=== PATIENT | male | born 1965 | race Caucasian/White ===

== ENCOUNTER 2021-02-12 23:57 | Inpatient (IN) | payer OTHER, SELFPAY ==
[~2021-02-12] VITALS: Ht 172.7 cm; Wt 99.8 kg
[2021-02-13] VITALS: BP 157/53
--- NOTE | 2021-02-13 00:20 | NUR ---
55 yo m bib self with c/c of 9/10 sharp r chest and r upper back pain x 1day. pt is sob sating at 83% on RA, 4L of 02 gets pt to 90%. pt states he was bending fwrd to put his sock on and felt a pull on his back. pt states activity causes sob. pt came in with 02 at 4L, stated he was hospitalized for about 4 months d/t covid. denies n/v/d and fever. denies taking medication for pain. pt placed on monitor. all needs met at this time. hx:prediabetic rx: medication for dm (cant recall name) denies allerg
--- NOTE | 2021-02-13 00:31 | NUR ---
ermd at bedside.
--- NOTE | 2021-02-13 01:10 | NUR ---
lab at bedside.
--- NOTE | 2021-02-13 01:12 | NUR ---
lonnie collected and given to stuart starch factory laborer.
[2021-02-13 01:26] LABS: BASOPHILS % (AUTO) 0.4 % (0.0-2.0); EOSINOPHILS # (AUTO) 0.1 K/uL (0-0.4); EOSINOPHILS % (AUTO) 0.6 % (0.0-4.0); HEMATOCRIT 49.8 % (36-52); HEMOGLOBIN 16.4 g/dL (12.0-18.0); LYMPHOCYTES % (AUTO) 9.3 % (20.5-51.1); MEAN CORPUSCULAR HEMOGLOBIN 29 pg (27-31); MEAN CORPUSCULAR HGB CONC 33 g/dL (33-37); MEAN CORPUSCULAR VOLUME 88.4 fL (80-94); MONOCYTES # (AUTO) 0.5 K/uL (0.8-1.0); MONOCYTES % (AUTO) 4.7 % (1.7-9.3); NEUTROPHILS # (AUTO) 9.4 K/uL (1.8-7.7); PLATELET COUNT (AUTO) 183 K/uL (140-450); RED BLOOD CELL COUNT(AUTO) 5.63 MIL/uL (4.20-6.10); RED CELL DISTRIBUTION WIDTH 15.3 % (11.6-13.7); WHITE BLOOD COUNT (AUTO) 11.1 K/uL (4.8-10.8)
[2021-02-13 01:38] LABS: ALBUMIN 4.2 g/dL (3.4-5.0); ANION GAP 16.8 (8-16); CARBON DIOXIDE 24.7 mmol/L (21-32); CREATININE 0.8 mg/dL (0.6-1.3); POTASSIUM 3.5 mmol/L (3.5-5.1); TOTAL BILIRUBIN 0.9 mg/dL (0.0-1.0)
[2021-02-13] MEDS ORDERED: LIDOCAINE MPF 1% 5 ML ONE ×2 (02:06→02:13)
[2021-02-13] MEDS ORDERED: LIDOCAINE MPF 1% 10 MG/ML VIAL INJ ONE (02:35)
--- NOTE | 2021-02-13 02:45 | NUR ---
Consent signed per patient for placement of chest tube to right upper chest chest. Physician marked site for placement. Time out performed with all staff involved just prior to placement. right side chest cleansed with chlorahexadine per physician. Physician numbed site with lidocain prior to placement. # 32 FR chest tube placed to right side chest per ermd. Tubing sutured in place per ermd . Tubing taped to chest wall with foam tape per ermd. Pleuravac connected to chest tube per ermd. no drainage noted to tubing. Pleuravac secured to floor with tape. Lung sounds auscultated over right side chest wall. O2 sats 94% per pulse ox. Patient tolerated procedure well. PCXR done at bedside.
--- NOTE | 2021-02-13 03:18 | NUR ---
pt provided with food.
[2021-02-13] MEDS ORDERED: MORPHINE SULFATE 4 MG/ML SYR IVP ONE (03:20)
--- NOTE | 2021-02-13 03:48 | NUR ---
pt is sitting up in bed, in stable condition. vss.pt smiling, stated he felt relief as soon as the chest tube was placed. pt said he is grateful. all needs met at this time. bed locked in lowest position. side rails x2. pt asked to keep food at bedside for later.
--- NOTE | 2021-02-13 07:38 | NUR ---
Pt report given to KIT RANKIN. Transfer of care at this time.
[2021-02-13] MEDS ORDERED: MAG SULF 2000 MG/WATER PREMIX 50 ML IV PRN (07:40)
[2021-02-13] MEDS ORDERED: ACETAMINOPHEN 325 MG TAB PO PRN (07:40)
[2021-02-13] MEDS ORDERED: KCL 20 MEQ/WATER INJ PREMIX 200 ML IV PRN (07:40)
[2021-02-13] MEDS ORDERED: MAGNESIUM OXIDE 400 MG TAB PO PRN (07:40)
[2021-02-13] MEDS ORDERED: ONDANSETRON 4 MG/2 ML VIAL IVP PRN (07:40)
[2021-02-13] MEDS ORDERED: POTASSIUM CHLORIDE 10 MEQ TABER PO PRN (07:40)
[2021-02-13] MEDS ORDERED: MORPHINE SULFATE 4 MG/ML SYR IVP PRN (07:40)
--- NOTE | 2021-02-13 09:24 | NUR ---
Patient will be admitted to care of B[facility]JAM[facility]NS. Admited to TELEMETRY. Will go to room 106B. Belongings list completed. Report to REJI PANTOJA.
[2021-02-13] MEDS: DOCUSATE SODIUM 100 MG GELCAP PO SCH (09:33)
--- NOTE | 2021-02-13 09:58 | NUR ---
RECEIVED PT FROM ED. PT STABLE. CHEST TUBE IN PLACE WITH SUCTION SET TO 10 PER MD ORDERS. O2 AT 4L NC. PERSONAL BELONGINGS AT BEDSIDE ALONG WITH PERSONAL O2 TANK. ORIENTED PT TO ROOM AND CALL LIGHT. CALL LIGHT IN REACH. URINAL AT BEDSIDE. ALL SAFETY MEASURES IN PLACE.
--- NOTE | 2021-02-13 10:36 | NUR ---
PROVIDED PT GOWN. NO S/S OF DISTRESS. PT DENIES PAIN AT THIS TIME. BREATHING SYMMETRICAL. CALL LIGHT IN REACH. ALL SAFETY MEASURES IN PLACE.
[2021-02-13 12:00] VITALS: BP 116/76
--- NOTE | 2021-02-13 12:42 | NUR ---
PT RESTING IN BED. NO S/S OF DISTRESS. BREATHING SYMMETRICAL. LUNCH AT BEDSIDE. CALL LIGHT IN REACH. ALL SAFETY MEASURES IN PLACE.
--- NOTE | 2021-02-13 14:36 | NUR ---
PATIENT STATED TAKING MEDICATIONS AT HOME. PT NOT SURE WHAT MEDICATIONS ARE CALLED. ATTEMPTED TO REACH FAMILY TO CLARIFY. NO ANSWER AT THIS TIME. CALL LIGHT WITHIN REACH. ALL SAFETY MEASURES IN PLACE.
--- NOTE | 2021-02-13 15:55 | NUR ---
PT RESTING IN BED WITH EYES CLOSED. NO S/S OF DISTRESS. BREATHING SYMMETRICAL. SUCTIONING PER MD ORDER. CALL LIGHT IN REACH. ALL SAFETY MEASURES IN PLACE.
[2021-02-13 16:00] VITALS: BP 119/73
[2021-02-13] MEDS ORDERED: METF-1197 PO (17:32)
[2021-02-13] MEDS ORDERED: ATOR40TA PO (17:32)
--- NOTE | 2021-02-13 17:33 | NUR ---
PT FAMILY DROPPED OFF HOME MEDICATIONS. MEDICATION RECONCILIATION COMPLETED MD NOTIFIED.
--- NOTE | 2021-02-13 17:35 | NUR ---
PHARMACY CLOSED. MEDICATIONS SEALED IN BAG AND GIVEN TO PT AT BEDSIDE. PT INSTRUCTED TO LEAVE BAG SEALED AND NOT TAKE HOME MEDS WHILE IN HOSPITAL CARE. PATIENT VERBALIZED UNDERSTANDING. CALL LIGHT IN REACH. ALL SAFETY MEASURES IN PLACE.
--- NOTE | 2021-02-13 19:37 | NUR ---
ENDORSED PT TO TICKET CHOPPER ASSEMBLER NURSE. PT STABLE. NO S/S OF DISTRESS. BREATHING SYMMETRICAL. CALL LIGHT IN REACH. ALL SAFETY MEASURES IN PLACE.
--- NOTE | 2021-02-13 19:38 | NUR ---
RECD. RESTING IN BED, AWAKE, A/OX4. RESPIRATION EVEN AND UNLABORED. ON 02 AT 4 LITERS VIA N/C, 02 SAT - 95%. RESPIRATION EVEN AND UNLABORED. LUNG SOUNDS DIMINISHED ON BILATERAL LUNG AUSCULTATION. WITH CHEST TUBE TO THE RIGHT CHEST TUBE DRAINING MINIMAL AMOUNT OF PINKISH FLUIDS. ENCOURAGED PATIENT TO ALTERNATELY TURN TO RIGHT OR LEFT SIDE TO PREVENT PNEUMONIA. VERBALIZED UNDERSTANDING. ABLE TO EAT 95 % OF DINNER. PAIN IN THE CHEST /, WILL MEDICATE PER MD ORDER.
[2021-02-13] MEDS: HYDROcodone/APAP 5/325 MG 1 TAB TAB PO PRN (19:54)
--- NOTE | 2021-02-13 19:54 | NUR ---
COMPLAINT OF 10/14, PAIN IN THE CHEST TUBE SITE, MEDICATED PER MD ORDER.
[2021-02-13 20:00] VITALS: BP 127/80
--- NOTE | 2021-02-13 20:24 | NUR ---
Patient's Plan of Care was discussed and reviewed with PROGRAM AND RESEARCH COORDINATOR: LEEANN MARTINEZ
--- NOTE | 2021-02-13 20:55 | NUR ---
RESTING IN BED, PAIN IN THE CHEST TUBE SITE, 1/10. STATED FEELS BETTER.
[2021-02-14] VITALS: BP 96/52
--- NOTE | 2021-02-14 | NUR ---
CHECKED PATIENT, SLEEPING COMFORTABLY, RESPIRATION EVEN AND UNLABORED.
--- NOTE | 2021-02-14 02:00 | NUR ---
USES THE URINAL, VOIDING CLEAR YELLOW URINE MODERATE AMOUNT.
[2021-02-14 04:00] VITALS: BP 114/75
--- NOTE | 2021-02-14 04:00 | NUR ---
ASLEEP SUPINE IN BED, NO SOB NOTED.
[2021-02-14] MEDS: HYDROcodone/APAP 5/325 MG 1 TAB TAB PO PRN ×3 (05:45→20:56)
--- NOTE | 2021-02-14 06:00 | NUR ---
CHEST X-RAY DONE BY TECH. 25 ML PINKISH FLUID OUTPUT FOR THE CHEST TUBE DRAINAGE NOTED.
[2021-02-14 07:04] LABS: PROTHROMBIN TIME 10.7 secs (10.8-13.4)
[2021-02-14 07:05] LABS: BASOPHILS % (AUTO) 0.3 % (0.0-2.0); EOSINOPHILS # (AUTO) 0.8 K/uL (0-0.4); EOSINOPHILS % (AUTO) 8.5 % (0.0-4.0); HEMATOCRIT 48.1 % (36-52); HEMOGLOBIN 15.9 g/dL (12.0-18.0); LYMPHOCYTES # (AUTO) 2.4 K/uL (2.0-11.5); LYMPHOCYTES % (AUTO) 25.4 % (20.5-51.1); MEAN CORPUSCULAR HEMOGLOBIN 30 pg (27-31); MEAN CORPUSCULAR HGB CONC 33 g/dL (33-37); MEAN CORPUSCULAR VOLUME 89.9 fL (80-94); MONOCYTES # (AUTO) 0.7 K/uL (0.8-1.0); NEUTROPHILS # (AUTO) 5.5 K/uL (1.8-7.7); NEUTROPHILS % (AUTO) 58.8 % (42.2-75.2); PLATELET COUNT (AUTO) 172 K/uL (140-450); RED BLOOD CELL COUNT(AUTO) 5.35 MIL/uL (4.20-6.10); RED CELL DISTRIBUTION WIDTH 15.5 % (11.6-13.7); WHITE BLOOD COUNT (AUTO) 9.4 K/uL (4.8-10.8)
--- NOTE | 2021-02-14 07:10 | NUR ---
RECEIVED REPORT FROM BEE RANCHER NURSE FOR CONTINUITY OF PATIENT CARE. PATIENT AWAKE AND ALERT. NO ACUTE DISTRESS NOTED. PATIENT ON 4L NC. PATIENT HAS CHEST TUBE TO RIGHT UPPER CHEST. PATIENT HAS L AC 20G. ALL SAFETY MEASURES IN PLACE. CALL LIGHT WITHIN REACH. WILL CONTINUE TO MONITOR.
[2021-02-14 07:28] LABS: ALBUMIN 3.6 g/dL (3.4-5.0); ANION GAP 13.2 (8-16); CARBON DIOXIDE 28.4 mmol/L (21-32); CREATININE 0.8 mg/dL (0.6-1.3); POTASSIUM 3.6 mmol/L (3.5-5.1); TOTAL BILIRUBIN 0.8 mg/dL (0.0-1.0)
--- NOTE | 2021-02-14 07:38 | NUR ---
PATIENT HAS BEEN SCREENED AND CATEGORIZED MODERATE NUTRITION RISK. PATIENT WILL BE SEEN WITHIN 3-5 DAYS OF ADMISSION. 02/15/21 02/17/[address]
[2021-02-14 08:00] VITALS: BP 105/68
[2021-02-14] MEDS: DOCUSATE SODIUM 100 MG GELCAP PO SCH (08:18)
--- NOTE | 2021-02-14 08:20 | NUR ---
PATIENT AWAKE AND ALERT. NO ACUTE DISTRESS NOTED. SCHEDULED MEDICATIONS GIVEN. ALL SAFETY MEASURES IN PLACE. CALL LIGHT WITHIN REACH. PATIENT ON 4L NC. PATIENT O2 95%. WILL CONTINUE TO MONITOR.
--- NOTE | 2021-02-14 10:00 | NUR ---
PATIENT AWAKE AND ALERT. NO ACUTE DISTRESS NOTED. ALL SAFETY MEASURES IN PLACE. CALL LIGHT WITHIN REACH. PATIENT ON 4L NC. PATIENT O2 94%. CHEST TUBE IN PLACE AND WORKING PROPERLY.WILL CONTINUE TO MONITOR
--- NOTE | 2021-02-14 11:46 | NUR ---
PATIENT AWAKE AND ALERT. NO ACUTE DISTRESS NOTED. PATIENT REQUESTED PAIN MEDICATION FOR PAIN AT CHEST TUBE INSERTION SIGHT. NORCO 5 GIVEN. ALL SAFETY MEASURES IN PLACE. CALL LIGHT WITHIN REACH. PATIENT ON 4L NC. PATIENT O2 95%. WILL CONTINUE TO MONITOR.
[2021-02-14 12:00] VITALS: BP 128/77
--- NOTE | 2021-02-14 13:22 | NUR ---
PATIENT AWAKE AND ALERT. NO ACUTE DISTRESS NOTED. PATIENT DENIES PAIN AT THIS TIME. ALL SAFETY MEASURES IN PLACE. CALL LIGHT WITHIN REACH. PATIENT ON 4L NC. PATIENT O2 96%. WILL CONTINUE TO MONITOR.
--- NOTE | 2021-02-14 15:04 | NUR ---
PATIENT AWAKE AND ALERT. NO ACUTE DISTRESS NOTED. PATIENT DENIES PAIN AT THIS TIME. ALL SAFETY MEASURES IN PLACE. CALL LIGHT WITHIN REACH. PATIENT ON 4L NC. PATIENT O2 95%. WILL CONTINUE TO MONITOR.
--- NOTE | 2021-02-14 16:55 | NUR ---
DC PLANNING PATIENT IS A 55-YEAR-OLD MALE ADMITTED ON THE [facility] ED ON 02/13/21 TO SHORTNESS OF BREATH AND CHEST PAIN. PATIENT IS TAJIK SPEAKING ONLY DOOR CLAMP OPERATOR MET WITH PATIENT AT BEDSIDE TO DISCUSS AND GATHER HIS COLLATERAL INFORMATION. PATIENT WAS AWAKE AND ALERT DURING THE VISIT FROM SW. PER PATIENT HE LIVES AT HOME IN [facility] WITH HIS ADULT DAUGHTER DEMETRI [phone]. PATIENT REPORTED BEEN ABLE TO AMBULATE INDEPENDENTLY WITHOUT ANY ASSISTANCE. HOWEVER; SHE HAS STRUGGLES WITH HIS SHORTNESS OF BREATH THEREFORE; HE HAS O2 AND A WHEELCHAIR AT HOME HIS DME. PATIENT REPORTED NOT HAVING ADVANCE DIRECTIVES AND WAS NOT INTERESTED ON GETTING INFORMATION PACKET PROVIDED BY CLAIR. PATIENT REPORTED HAVING NO ISSUES GETTING OR TAKING HIS MEDICATIONS PRESCRIBED BY BOLA GRANDE AT [address] [facility]. [id number]. . PER PATIENT HIS NEXT APPOINTMENT WITH HIS PRIMARY DOCTOR IS ALREADY SCHEDULED FOR 02/17/2021 AT 10:30 AM. DOOR CLAMP OPERATOR DISCUSSED WITH PATIENT ABOUT THE IMPORTANCE OF FOLLOWING UP WITH PCP WITHIN 7 DAYS OF HIS DISCHARGE PATIENT AGREED AND STATED THAT HE WILL BE ATTENDING TO FOLLOW UP APPOINTMENT WITH HIS PRIMARY MD IN [place]. PATIENT ALSO STATED THAT HIS DAUGHTER WILL BE ASSISTING WITH HIS TRANSPORT BACK HOME AFTER DC FROM [facility]. SW WILL FOLLOW UP NEEDED.
--- NOTE | 2021-02-14 17:02 | NUR ---
PATIENT AWAKE AND ALERT. NO ACUTE DISTRESS NOTED. PATIENT DENIES PAIN AT THIS TIME. ALL SAFETY MEASURES IN PLACE. CALL LIGHT WITHIN REACH. PATIENT ON 4L NC. PATIENT O2 97%. CHEAT TUBE INTACT AND SUCTIONING PROPERLY. WILL CONTINUE TO MONITOR.
--- NOTE | 2021-02-14 18:30 | NUR ---
CHEST TUBE DRAINAGE 15ML OUTPUT
--- NOTE | 2021-02-14 19:15 | NUR ---
ENDORSE TO BLEACH TESTER NURSE FOR CONTINUITY OF PATIENT CARE. PATIENT STABLE. ALL SAFETY MEASURES IN PLACE.
[2021-02-15] VITALS: BP 118/74
[2021-02-15 06:02] LABS: ALBUMIN 3.3 g/dL (3.4-5.0); ANION GAP 10.2 (8-16); CARBON DIOXIDE 29.8 mmol/L (21-32); CREATININE 0.8 mg/dL (0.6-1.3); PHOSPHORUS 3.3 mg/dL (2.5-4.9); TOTAL BILIRUBIN 0.7 mg/dL (0.0-1.0)
[2021-02-15 06:06] LABS: PROTHROMBIN TIME 10.6 secs (10.8-13.4)
[2021-02-15 06:12] LABS: BASOPHILS # (AUTO) 0.1 K/uL (0.00-0.22); BASOPHILS % (AUTO) 0.7 % (0.0-2.0); EOSINOPHILS # (AUTO) 1.4 K/uL (0-0.4); EOSINOPHILS % (AUTO) 13.9 % (0.0-4.0); HEMATOCRIT 47.3 % (36-52); HEMOGLOBIN 15.6 g/dL (12.0-18.0); LYMPHOCYTES # (AUTO) 2.6 K/uL (2.0-11.5); MEAN CORPUSCULAR HEMOGLOBIN 29 pg (27-31); MEAN CORPUSCULAR HGB CONC 33 g/dL (33-37); MONOCYTES # (AUTO) 0.7 K/uL (0.8-1.0); MONOCYTES % (AUTO) 6.9 % (1.7-9.3); NEUTROPHILS # (AUTO) 5.2 K/uL (1.8-7.7); NEUTROPHILS % (AUTO) 52.5 % (42.2-75.2); PLATELET COUNT (AUTO) 166 K/uL (140-450); RED BLOOD CELL COUNT(AUTO) 5.31 MIL/uL (4.20-6.10); RED CELL DISTRIBUTION WIDTH 15.4 % (11.6-13.7); WHITE BLOOD COUNT (AUTO) 9.8 K/uL (4.8-10.8)
[2021-02-15 08:00] VITALS: BP 108/69
[2021-02-15] MEDS: DOCUSATE SODIUM 100 MG GELCAP PO SCH ×2 (09:18→09:19)
--- NOTE | 2021-02-15 13:12 | NUR ---
DC PLANNIN YRS OLD MALE PATIENT WAS ADMITTED FROM HOME WITH A DX OF PNEUMOTHORAX. PATIENT HAS A HX OF DM, HLD. CXR SHOWED RT SIDED PNEUMOTHORAX. RAPID COVID TEST NEGATIVE. CONSULTED WITH MORGAN. DC PLAN TO GO HOME WHEN STABLE CM TO FOLLOW Addendum: 02/17/21 at 1433 by Mayi Ortiz RN DC PLANNING: CXR SHOWED NO CHANGE IN SMALL PNEUMOTHORAX 15-20%. CONTINUE WATER SEAL SUCTION. O2 4L/NC SATING 97%. PULMO FOLLOWING . DC PLAN TO GO HOME WHEN STABLE. CM TO FOLLOW Addendum: 02/24/21 at 1410 by Mayi Ortiz RN DC PLANNING: PT STILL HAS CHEST TUBE ON WATER SEAL SUCTION. TODAY"S CXR SHOWED NO PNEUMOTHORAX, ORDERED CT CHEST DC PLAN AWAITING FOR CT CHEST RESULT. CM TO FOLLOW
[2021-02-15 18:02] VITALS: BP 123/77
[2021-02-16] VITALS: BP 115/79
[2021-02-16 07:11] LABS: BASOPHILS # (AUTO) 0.1 K/uL (0.00-0.22); BASOPHILS % (AUTO) 0.6 % (0.0-2.0); EOSINOPHILS # (AUTO) 1.4 K/uL (0-0.4); EOSINOPHILS % (AUTO) 15.6 % (0.0-4.0); HEMATOCRIT 46.8 % (36-52); HEMOGLOBIN 15.6 g/dL (12.0-18.0); LYMPHOCYTES # (AUTO) 1.9 K/uL (2.0-11.5); LYMPHOCYTES % (AUTO) 21.3 % (20.5-51.1); MEAN CORPUSCULAR HEMOGLOBIN 30 pg (27-31); MEAN CORPUSCULAR HGB CONC 33 g/dL (33-37); MEAN CORPUSCULAR VOLUME 89.2 fL (80-94); MONOCYTES # (AUTO) 0.7 K/uL (0.8-1.0); MONOCYTES % (AUTO) 7.2 % (1.7-9.3); NEUTROPHILS # (AUTO) 5.1 K/uL (1.8-7.7); NEUTROPHILS % (AUTO) 55.3 % (42.2-75.2); PLATELET COUNT (AUTO) 177 K/uL (140-450); RED BLOOD CELL COUNT(AUTO) 5.24 MIL/uL (4.20-6.10); WHITE BLOOD COUNT (AUTO) 9.2 K/uL (4.8-10.8)
--- NOTE | 2021-02-16 07:25 | NUR ---
RECEIVED REPORT FROM ASSEMBLER FINAL NURSE FOR CONTINUITY OF CARE. PATIENT IS AWAKE AND ALERT. PATIENT IS ON 4L O2 VIA NASAL CANULA. NO DISTRESS NOTED. NO PAIN REPORTED. PATIENT ABD IS NON-DISTENDED, NON-TENDER WITH BOWEL SOUNDS PRESENT. PATIENT HAS CHEST TUBE TO RIGHT UPPER CHEST. CHEST TUBE IS CLAMPED PER ORDER. NO IV ACCESS. PATIENT HAS FULL ROM TO UPPER AND LOWER EXTREMITIES. CALL LIGHT WITHIN REACH. ALL SAFETY MEASURES IN PLACE. BED IN LOWEST POSITION.
[2021-02-16 07:38] LABS: ALBUMIN 3.3 g/dL (3.4-5.0); CARBON DIOXIDE 29.9 mmol/L (21-32); CREATININE 0.7 mg/dL (0.6-1.3); PHOSPHORUS 3.3 mg/dL (2.5-4.9); POTASSIUM 3.9 mmol/L (3.5-5.1); TOTAL BILIRUBIN 0.8 mg/dL (0.0-1.0)
[2021-02-16 08:00] VITALS: BP 125/89
[2021-02-16 08:23] LABS: PROTHROMBIN TIME 10.5 secs (10.8-13.4)
[2021-02-16] MEDS: DOCUSATE SODIUM 100 MG GELCAP PO SCH (09:00)
--- NOTE | 2021-02-16 09:00 | NUR ---
ALL SCHEDULED MEDICATION ADMINISTERED. PATIENT TOLERATED WELL. NO PAIN OR CONCERNS REPORTED. WILL CONTINUE TO MONITOR.
--- NOTE | 2021-02-16 11:43 | NUR ---
02/16/21 RD INITIAL ASSESSMENT COMPLETED PLEASE REFER TO NUTRITION ASSESSMENT UNDER CARE ACTIVITY FOR ESTIMATED NUTRITIONAL NEEDS. 1. CONTINUE CARDIAC DIET TOLERATED 2. RECOMMEND ENSURE IF PO INTAKE <75% 3. RD TO FOLLOW-UP 3-5 DAYS, MODERATE RISK STEVIE BRAXTON, RD
[2021-02-16] MEDS: HYDROcodone/APAP 5/325 MG 1 TAB TAB PO PRN (11:57)
--- NOTE | 2021-02-16 11:57 | NUR ---
PATIENT COMPLAIN OF PAIN. RATE 5 OUT OF 10. MEDICATION ADMINISTERED.WILL CONTINUE TO MONITOR.
--- NOTE | 2021-02-16 12:10 | NUR ---
CHEST TUBE SUCTION CHANGED BACK TO LCS @ 15 PER ORDER.
--- NOTE | 2021-02-16 14:05 | NUR ---
DID ROUNDS ON PATIENT. PATIENT IS UP IN CHAIR WATCHING TELEVISION. NO COMPLAINTS OF PAIN OR DISCOMFORT. ASKED PATIENT IF HE NEEDED ANYTHING, PATIENT STATED ALL HE WANTED WAS ICE WATER. BROUGHT PATIENT WATER. CALL LIGHT WITHIN REACH. WILL CONTINUE TO MONITOR.
[2021-02-16 16:00] VITALS: BP 106/69
--- NOTE | 2021-02-16 16:00 | NUR ---
ROUNDED ON PATIENT. PATIENT IS AWAKE AND ON THE PHONE AT THIS TIME. NO COMPLAINTS OF PAIN OR DISCOMFORT. CHECKED CHEST TUBE DRAINAGE. DRAINED 9 ML SINCE TUBE WAS UNCLAMPED AND SUCTION RESUMED. WILL CONTINUE TO MONITOR.
--- NOTE | 2021-02-16 19:15 | NUR ---
ENDORSED PATIENT TO PARK MAINTAINER NURSE. PATIENT STABLE. NO SIGHS OF DISTRESS NOTED. CALL LIGHT WITHIN REACH. BED IN LOWEST POSITION. ALL SAFETY MEASURES IN PLACE.
[2021-02-17] VITALS: BP 115/72
[2021-02-17 07:10] LABS: BASOPHILS # (AUTO) 0.1 K/uL (0.00-0.22); BASOPHILS % (AUTO) 0.6 % (0.0-2.0); EOSINOPHILS # (AUTO) 1.4 K/uL (0-0.4); EOSINOPHILS % (AUTO) 13.7 % (0.0-4.0); HEMATOCRIT 46.1 % (36-52); HEMOGLOBIN 15.2 g/dL (12.0-18.0); LYMPHOCYTES # (AUTO) 1.9 K/uL (2.0-11.5); LYMPHOCYTES % (AUTO) 19.5 % (20.5-51.1); MEAN CORPUSCULAR HEMOGLOBIN 29 pg (27-31); MEAN CORPUSCULAR HGB CONC 33 g/dL (33-37); MEAN CORPUSCULAR VOLUME 88.2 fL (80-94); MONOCYTES # (AUTO) 0.6 K/uL (0.8-1.0); NEUTROPHILS % (AUTO) 60.2 % (42.2-75.2); PLATELET COUNT (AUTO) 176 K/uL (140-450); RED BLOOD CELL COUNT(AUTO) 5.23 MIL/uL (4.20-6.10); RED CELL DISTRIBUTION WIDTH 15.2 % (11.6-13.7); WHITE BLOOD COUNT (AUTO) 9.9 K/uL (4.8-10.8)
[2021-02-17 07:21] LABS: PROTHROMBIN TIME 10.4 secs (10.8-13.4)
[2021-02-17 07:22] LABS: ALBUMIN 3.2 g/dL (3.4-5.0); ANION GAP 11.3 (8-16); CARBON DIOXIDE 29.7 mmol/L (21-32); CREATININE 0.7 mg/dL (0.6-1.3); PHOSPHORUS 2.8 mg/dL (2.5-4.9); TOTAL BILIRUBIN 0.8 mg/dL (0.0-1.0)
--- NOTE | 2021-02-17 07:31 | NUR ---
RECEIVED BEDSIDE REPORT FROM DIMENSION STONE QUARRY SUPERVISOR RN FOR CONTINUITY OF CARE. PATIENT IS RESTING IN BED. NO S/S OF DISTRESS. RESPIRATIONS ARE EVEN AND UNLABORED. ALL SAFETY PRECAUTIONS IN PLACE.
[2021-02-17 08:00] VITALS: BP 113/69
[2021-02-17] MEDS: DOCUSATE SODIUM 100 MG GELCAP PO SCH (08:41)
[2021-02-17] MEDS: HYDROcodone/APAP 5/325 MG 1 TAB TAB PO PRN (08:42)
--- NOTE | 2021-02-17 08:50 | NUR ---
ADMINISTERED SCHEDULED MEDICATIONS. PATIENT COMPLAINED OF 5/10 PAIN. ALSO ADMINISTERED PRN PAIN MEDICATION PER MD ORDER. PATIENT VERBALIZED UNDERSTANDING. ALL SAFETY PRECAUTIONS IN PLACE.
--- NOTE | 2021-02-17 10:30 | NUR ---
RECEIVED ORDER TO PLACE PATIENT ON WATER SEAL AND STOP SUCTION. SUCTION IS NOW TURNED OFF AND PATIENT IS ON WATER SEAL ORDERED. PATIENT IS STABLE.
--- NOTE | 2021-02-17 11:28 | NUR ---
PATIENT IS AWAKE AND SITTING IN CHAIR AT BEDSIDE. NO COMPLAINTS OF PAIN AND NO S/S OF DISTRESS. ALL SAFETY PRECAUTIONS IN PLACE.
--- NOTE | 2021-02-17 15:03 | NUR ---
PATIENT IS SITTING IN A CHAIR NEXT TO BED. PATIENT IS RESTING COMFORTABLY. NO S/S OF DISTRESS. RESPIRATIONS ARE EVEN AND UNLABORED ON ROOM AIR. ALL SAFETY PRECAUTIONS IN PLACE
[2021-02-17 16:00] VITALS: BP 118/64
--- NOTE | 2021-02-17 17:20 | NUR ---
PATIENT TAKEN BY RADIOLOGY TO CT. PATIENT IS STABLE.
--- NOTE | 2021-02-17 17:37 | NUR ---
PATIENT BACK FROM CT. PATIENT IS STABLE.
--- NOTE | 2021-02-17 17:46 | NUR ---
PATIENT'S CALLED AND GOT INTO CONTACT WITH ALLERGIST/IMMUNOLOGIST. PATIENT'S WAS UPSET THAT SHE DID NOT HAVE AN UPDATE ABOUT HER BUT CALL WAS DISCONNECTED. ALLERGIST/IMMUNOLOGIST AND I IMMEDIATELY ATTEMPTED TO CALL BACK USING PATIENT'S PHONE BUT UNABLE TO REACH PATIENT'S ON THE PHONE AGAIN.
--- NOTE | 2021-02-17 18:55 | NUR ---
PATIENT REPORTS HE SPOKE WITH HIS AND HAS NO QUESTIONS OR CONCERNS AT THIS TIME. PATIENT VERBALIZED UNDERSTANDING OF CONTINUED POC. ALL SAFETY PRECAUTIONS IN PLACE.
--- NOTE | 2021-02-17 19:33 | NUR ---
ENDORSED PATIENT TO RETAIL ASSET PROTECTION SPECIALIST RN MICHAEL. PATIENT IS STABLE.
--- NOTE | 2021-02-17 23:22 | NUR ---
the pateint has chest tube with no low suction and has order to clamp the chest tube at 0300 10/15 three hours before the mornig chest , vitals are stable. he sleeps comfortable in his bed .
[2021-02-18] VITALS: BP 121/69
[2021-02-18 06:26] LABS: BASOPHILS % (AUTO) 0.5 % (0.0-2.0); EOSINOPHILS # (AUTO) 1.3 K/uL (0-0.4); EOSINOPHILS % (AUTO) 14.5 % (0.0-4.0); HEMATOCRIT 46.4 % (36-52); HEMOGLOBIN 15.4 g/dL (12.0-18.0); LYMPHOCYTES % (AUTO) 21.7 % (20.5-51.1); MEAN CORPUSCULAR HEMOGLOBIN 30 pg (27-31); MEAN CORPUSCULAR HGB CONC 33 g/dL (33-37); MONOCYTES # (AUTO) 0.6 K/uL (0.8-1.0); MONOCYTES % (AUTO) 6.8 % (1.7-9.3); NEUTROPHILS # (AUTO) 5.1 K/uL (1.8-7.7); NEUTROPHILS % (AUTO) 56.5 % (42.2-75.2); PLATELET COUNT (AUTO) 175 K/uL (140-450); RED BLOOD CELL COUNT(AUTO) 5.21 MIL/uL (4.20-6.10); RED CELL DISTRIBUTION WIDTH 15.2 % (11.6-13.7); WHITE BLOOD COUNT (AUTO) 9.1 K/uL (4.8-10.8)
[2021-02-18 06:59] LABS: ALBUMIN 3.4 g/dL (3.4-5.0); ANION GAP 10.1 (8-16); CARBON DIOXIDE 30.7 mmol/L (21-32); CREATININE 0.8 mg/dL (0.6-1.3); PHOSPHORUS 2.9 mg/dL (2.5-4.9); POTASSIUM 3.8 mmol/L (3.5-5.1); TOTAL BILIRUBIN 0.7 mg/dL (0.0-1.0)
--- NOTE | 2021-02-18 07:23 | NUR ---
RECEIVED REPORT FROM AGRICULTURAL EDUCATION INSTRUCTOR RN FOR CONTINUITY OF CARE. PATIENT IS RESTING IN BED. RESPIRATIONS ARE EVEN AND UNLABORED ON 4L NASAL CANULA. NO S/S OF DISTRESS. ALL SAFETY PRECAUTIONS IN PLACE.
[2021-02-18 07:47] LABS: PROTHROMBIN TIME 10.5 secs (10.8-13.4)
[2021-02-18 08:00] VITALS: BP 106/67
[2021-02-18] MEDS ORDERED: DEXTROSE 50% 50 ML SYR IVP PRN (08:00)
[2021-02-18] MEDS: DOCUSATE SODIUM 100 MG GELCAP PO SCH (08:42)
--- NOTE | 2021-02-18 08:49 | NUR ---
ADMINISTERED SCHEDULED MEDICATIONS. PATIENT VERBALIZED UNDERSTANDING. PATIENT STATED HE USED THE RESTROOM AND HAD 1 BM. PATIENT IS USING NASAL CANULA ON 4L. NO COMPLAINTS OF PAIN AT THIS TIME. ALL SAFETY PRECAUTIONS IN PLACE.
--- NOTE | 2021-02-18 10:28 | NUR ---
SPOKE WITH DR HERNANDEZ OVER THE PHONE. NOTIFIED HIM OF CHEST XRAY UPDATE AND PATIENT'S CURRENT CONDITION. PATIENT STATES HE FEELS SHORT OF BREATH AND FEELS BETTER SITTING UP AT THE BEDSIDE. DR HERNANDEZ ORDERED TO UNCLAMP CHEST TUBE, PLACE PATIENT ON WATER SEAL, AND REPEAT CHEST XRAY IN 2 HOURS.
[2021-02-18] MEDS: BLOOD GLUCOSE MONITORING 1 DEV DEV FS SCH ×3 (11:30→21:00)
--- NOTE | 2021-02-18 11:30 | NUR ---
DR HERNANDEZ AT BEDSIDE TO ADJUST CHEST TUBE. PATIENT IS STABLE.
--- NOTE | 2021-02-18 13:55 | NUR ---
PATIENT IS SITTING AT THE BEDSIDE. NO S/S OF DISTRESS. ALL SAFETY PRECAUTIONS IN PLACE.
[2021-02-18 16:00] VITALS: BP 100/65
--- NOTE | 2021-02-18 17:02 | NUR ---
CHECKED PATIENT'S BLOOD SUGAR. BLOOD SUGAR AT 156. EDUCATED PATIENT ABOUT NEEDED INSULIN PER PRN SLIDING SCALE BUT PATIENT REFUSED.
--- NOTE | 2021-02-18 19:15 | NUR ---
ENDORSED PATIENT TO SALES OFFICE COORDINATOR RN FOR CONTINUITY OF CARE. PATIENT IS STABLE.
--- NOTE | 2021-02-18 23:58 | NUR ---
BLOOD SUGAR = 97 TONIGHT. NO HUMALOG SS. PT GIVEN AN HS SNACK: ONE HALF SANDWICH, ONE LF MILK, AND TWO VANILLA PUDDINGS.
[2021-02-19] MEDS: BLOOD GLUCOSE MONITORING 1 DEV DEV FS SCH ×4 (07:24→22:39)
[2021-02-19 08:00] VITALS: BP 125/49
--- NOTE | 2021-02-19 08:10 | NUR ---
RECEIVED REPORT FROM NIGHT NURSE PT IS ALERT ORIENTED X 4 VERBALLY RESPONSIVE, DENIES PAIN AND DISCOMFORT. ON CARDIAC DIET SKIN IS INTACT. PT HAS RIGHT UPPER CHEST TUBE. POC DISCUSSED WILL CONTINUE TO FOLLOW.
[2021-02-19] MEDS: DOCUSATE SODIUM 100 MG GELCAP PO SCH (09:04)
[2021-02-19] MEDS: INSULIN LISPRO SLIDING SCALE 100 UNITS/ML VIAL SUBQ PRN (11:21)
[2021-02-19 16:00] VITALS: BP 109/60
--- NOTE | 2021-02-19 19:29 | NUR ---
GAVE REPORT TO NIGHT NURSE PT IS STABLE.
[2021-02-19 20:00] VITALS: BP 108/62
[2021-02-20] VITALS: BP 109/69
[2021-02-20 04:00] VITALS: BP 99/58
[2021-02-20 07:09] LABS: BASOPHILS % (AUTO) 0.5 % (0.0-2.0); EOSINOPHILS # (AUTO) 1.4 K/uL (0-0.4); HEMOGLOBIN 15.1 g/dL (12.0-18.0); LYMPHOCYTES # (AUTO) 2.2 K/uL (2.0-11.5); LYMPHOCYTES % (AUTO) 24.2 % (20.5-51.1); MEAN CORPUSCULAR HEMOGLOBIN 30 pg (27-31); MEAN CORPUSCULAR HGB CONC 33 g/dL (33-37); MEAN CORPUSCULAR VOLUME 89.6 fL (80-94); MONOCYTES # (AUTO) 0.6 K/uL (0.8-1.0); NEUTROPHILS % (AUTO) 54.3 % (42.2-75.2); PLATELET COUNT (AUTO) 183 K/uL (140-450); RED BLOOD CELL COUNT(AUTO) 5.13 MIL/uL (4.20-6.10); RED CELL DISTRIBUTION WIDTH 15.1 % (11.6-13.7); WHITE BLOOD COUNT (AUTO) 9.2 K/uL (4.8-10.8)
[2021-02-20] MEDS: BLOOD GLUCOSE MONITORING 1 DEV DEV FS SCH ×4 (07:20→20:48)
[2021-02-20 07:25] LABS: ANION GAP 10.8 (8-16); CREATININE 0.9 mg/dL (0.6-1.3); POTASSIUM 3.8 mmol/L (3.5-5.1)
[2021-02-20 07:38] LABS: MAGNESIUM 2.2 mg/dL (1.8-2.4); PHOSPHORUS 3.7 mg/dL (2.5-4.9)
--- NOTE | 2021-02-20 08:08 | NUR ---
RECEIVED REPORT FROM NIGHT NURSE PT IS ALERT ORIENTED X 4 VERBALLY RESPONSIVE IN THE BED AT THE MOMENT, NO SOB NOTED HAVE CHEST TUBE ON RIGHT UPPER CHEST AREA. CHEST TUBE IS CLAMPED. WILL HAVE CHEST X RAY AT 2 PM. PT IS AWARE OF IT. POC DISCUSSED WILL CONTINUE TO FOLLOW.
[2021-02-20] MEDS: DOCUSATE SODIUM 100 MG GELCAP PO SCH (10:13)
--- NOTE | 2021-02-20 11:43 | NUR ---
BLOOD SUGAR 231, TRY TO ADMINISTERED INSULIN PT REFUSED. RISK AND BENEFITS OF REFUSING INSULIN EXPLAINED TO PT HE VERBALIZED THE UNDERSTANDING, AND REFUSED INSULIN COVERAGE.
--- NOTE | 2021-02-20 13:23 | NUR ---
RECEIVED PATIENT ON A CHEST TUBE TO RUL WITH WATER SEAL OFF AT THIS TIME
--- NOTE | 2021-02-20 13:23 | NUR ---
LOC AWAKE AND ALERT "ALBANIAN SPEAKING - LIMITED SURINAMESE" EDUCATION PROVIDED TOLERATED INCENTIVE SPIROMETRY (IS) THERAPY WELL WITHOUT ADVERSE REACTIONS NOTED ENCOURAGED PATIENT TO USE IS EVERY 1-2 HOURS WHILE AWAKE
--- NOTE | 2021-02-20 14:44 | NUR ---
RECEIVED CALL FROM DR ZARA MANUEL ABOUT CURRENT CHEST X RAY, RECOMMENDED TO UNCLAMPED THE CHEST TUBE. VERIFIED WITH DOCTOR FABIÁN AND UNCLAMPED THE CHEST TUBE, ON WATER SEAL.
[2021-02-20 16:00] VITALS: BP 104/79
--- NOTE | 2021-02-20 16:00 | NUR ---
DR. HOLLOWAY CALLED AND ASKING FOR CXR RESULT AND READ TO HIM. HE ORDERED PUT CHEST TUBE TO CONTINOUS SUCTION. WILL NOTIFY KIT DIAZ.
--- NOTE | 2021-02-20 19:24 | NUR ---
ENDORSED THE NIGHT NURSE FOR CONTINUITY OF CARE. PT IS STABLE.
[2021-02-21] VITALS: BP 106/69
[2021-02-21 04:00] VITALS: BP 121/77
[2021-02-21] MEDS: BLOOD GLUCOSE MONITORING 1 DEV DEV FS SCH ×4 (06:27→21:45)
[2021-02-21 07:07] LABS: BASOPHILS # (AUTO) 0.1 K/uL (0.00-0.22); BASOPHILS % (AUTO) 0.6 % (0.0-2.0); EOSINOPHILS # (AUTO) 1.3 K/uL (0-0.4); EOSINOPHILS % (AUTO) 14.4 % (0.0-4.0); HEMATOCRIT 45.9 % (36-52); HEMOGLOBIN 15.3 g/dL (12.0-18.0); LYMPHOCYTES # (AUTO) 2.5 K/uL (2.0-11.5); LYMPHOCYTES % (AUTO) 27.2 % (20.5-51.1); MEAN CORPUSCULAR HEMOGLOBIN 30 pg (27-31); MEAN CORPUSCULAR HGB CONC 33 g/dL (33-37); MONOCYTES # (AUTO) 0.4 K/uL (0.8-1.0); MONOCYTES % (AUTO) 3.8 % (1.7-9.3); PLATELET COUNT (AUTO) 187 K/uL (140-450); RED BLOOD CELL COUNT(AUTO) 5.15 MIL/uL (4.20-6.10); RED CELL DISTRIBUTION WIDTH 15.4 % (11.6-13.7); WHITE BLOOD COUNT (AUTO) 9.3 K/uL (4.8-10.8)
[2021-02-21 07:40] LABS: MAGNESIUM 2.4 mg/dL (1.8-2.4)
[2021-02-21 08:00] VITALS: BP 107/74
--- NOTE | 2021-02-21 08:01 | NUR ---
Assumed care last. A/O x 4. In no acute distress respiratory or otherwise. Inspected chest tube with Valencia PANTOJA. Filled with Sterile water up to 20 cm alexx. Chest tube remains patent. . This am, went over the chest tube with Dylan PANTOJA. Care has been endorsed to her.
--- NOTE | 2021-02-21 08:07 | NUR ---
RECEIVED PATIENT WITH A CHEST TUBE TO RUL WITH WATER SEAL ON AND FUNCTIONING WELL; SUPPLEMENTAL OXYGEN AT 4 LPM VIA NC SATURATION 98% TITRATED FIO2 TO 3 LPM BREATH SOUNDS CLEAR LEFT SIDE; INSPIRATORY "CREAKING" PLEURAL RUB AT RIGHT SIDE NO EVIDENCE OF WHEEZE RALES OR RHONCHI BILATERAL NO DISTRESS NOTED GOOD CHEST RISE JOCELYNE NOTIFIED OF OXYGEN TITRATION Addendum: 02/21/21 at 0925 by Ryan Vila RT TOLERATED INCENTIVE SPIROMETRY (IS) WELL WITHOUT COMPLICATIONS NOTED ENCOURAGED PATIENT TO USE IS EVERY 1-2 HOURS WHILE AWAKE JOCELYNE = PARESH
[2021-02-21] MEDS: DOCUSATE SODIUM 100 MG GELCAP PO SCH (09:00)
[2021-02-21 09:01] LABS: ANION GAP 14.3 (8-16); CARBON DIOXIDE 26.5 mmol/L (21-32); CREATININE 0.9 mg/dL (0.6-1.3); POTASSIUM 3.8 mmol/L (3.5-5.1)
[2021-02-21 09:33] LABS: PHOSPHORUS 3.7 mg/dL (2.5-4.9)
[2021-02-21] MEDS: INSULIN LISPRO SLIDING SCALE 100 UNITS/ML VIAL SUBQ PRN ×2 (12:48→12:52)
--- NOTE | 2021-02-21 13:54 | NUR ---
02/21/21 RD FOLLOW UP COMPLETED PLEASE REFER TO NUTRITION ASSESSMENT UNDER CARE ACTIVITY FOR ESTIMATED NUTRITIONAL NEEDS. 1. CONTINUE CARDIAC DIET TOLERATED 2. RD TO FOLLOW-UP 5-7 DAYS, LOW RISK STEVIE BRAXTON RD
[2021-02-21 18:13] VITALS: BP 107/70
--- NOTE | 2021-02-21 18:24 | NUR ---
0710 AM: PATIENT IS RESTING IN BED QUIETLY. NO ADDITIONAL DISTRESS NOTED. CALL LIGHT WITHIN REACH. BED IN LOW AND LOCK POSITION. STABLE CONDITION AT THIS TIME. RIGHT CHEST TUBE WALL TO SUCTION DRAINING SEROUSANGENOUS. WILL CONT TO MONITOR. 0800AM: EXPLAINED PLAN OF CARE AND PATIENT VERBALIZED UNDERSTANDING. PATIENT SPEAKS LITTLE ROMANIAN BUT ABLE TO MAKE NEEDS KNOWN. WILL CONT TO MONITOR. 1000AM: PATIENT IS WATCHING TV. NO ADDITIONAL DISTRESS NOTED. WILL CONT TO MONITOR. 1200PM: PATIENT IS SITTING AT THE SIDE OF THE BED EATING HIS LUNCH. WILL CONT TO MONITOR. 1248PM: PATIENT BS IS 175. PATIENT REFUSED INSULIN. EXPLAINED RISK AND BENEFITS. PATIENT VERBALIZED UNDERSTANDING. 1400: PATIENT IS WATCHING TV. NO ADDITIONAL DISTRESS NOTED. WILL CONT TO MONITOR. 1600: PATIENT IS SITTING AT THE SIDE OF THE BED TALKING TO THE PHONE. NO ADDITIONAL DISTRESS NOTED. WILL CONT TO MONITOR. 1710: BS 100. NO INSULIN NEEDED. GAVE PATIENT 2 CUP OF GELATIN SUGAR FREE. 1800: PATIENT IS SITTING AT THE SIDE OF THE BED EATING HIS DINNER. NO ADDITIONAL DISTRESS NOTED. WILL CONT TO MONITOR. 1820: 12HR CHEST TUBE OUTPUT=10 CC SEROUSANGENOUS.
[2021-02-22] VITALS: BP 115/75
--- NOTE | 2021-02-22 01:54 | NUR ---
The pateintwas admitted for pneumothorax, he has chest tube in place on low suction , he denies any pain , he sleeps comoftable in his bed comfort and safety measures are provided. bed is low position.
[2021-02-22 07:28] LABS: BASOPHILS % (AUTO) 0.4 % (0.0-2.0); EOSINOPHILS # (AUTO) 1.3 K/uL (0-0.4); EOSINOPHILS % (AUTO) 14.7 % (0.0-4.0); HEMATOCRIT 46.7 % (36-52); HEMOGLOBIN 15.3 g/dL (12.0-18.0); LYMPHOCYTES # (AUTO) 2.3 K/uL (2.0-11.5); LYMPHOCYTES % (AUTO) 26.7 % (20.5-51.1); MEAN CORPUSCULAR HEMOGLOBIN 29 pg (27-31); MEAN CORPUSCULAR HGB CONC 33 g/dL (33-37); MEAN CORPUSCULAR VOLUME 89.8 fL (80-94); MONOCYTES # (AUTO) 0.5 K/uL (0.8-1.0); MONOCYTES % (AUTO) 5.7 % (1.7-9.3); NEUTROPHILS # (AUTO) 4.6 K/uL (1.8-7.7); NEUTROPHILS % (AUTO) 52.5 % (42.2-75.2); PLATELET COUNT (AUTO) 184 K/uL (140-450); RED CELL DISTRIBUTION WIDTH 14.8 % (11.6-13.7); WHITE BLOOD COUNT (AUTO) 8.8 K/uL (4.8-10.8)
[2021-02-22 07:38] LABS: CARBON DIOXIDE 29.5 mmol/L (21-32); CREATININE 0.9 mg/dL (0.6-1.3); POTASSIUM 3.5 mmol/L (3.5-5.1)
[2021-02-22 07:51] LABS: MAGNESIUM 2.3 mg/dL (1.8-2.4); PHOSPHORUS 4.5 mg/dL (2.5-4.9)
[2021-02-22 08:00] VITALS: BP 110/73
[2021-02-22] MEDS: DOCUSATE SODIUM 100 MG GELCAP PO SCH (09:12)
[2021-02-22] MEDS: BLOOD GLUCOSE MONITORING 1 DEV DEV FS SCH ×4 (09:16→21:00)
[2021-02-22 16:00] VITALS: BP 102/63
--- NOTE | 2021-02-22 18:45 | NUR ---
0715 AM: PATIENT IS RESTING IN BED QUIETLY. NO ADDITIONAL DISTRESS NOTED. CALL LIGHT WITHIN REACH. BED IN LOW AND LOCK POSITION. STABLE CONDITION AT THIS TIME. RIGHT CHEST TUBE WALL TO SUCTION DRAINING SEROUSANGENOUS. WILL CONT TO MONITOR. 0800AM: EXPLAINED PLAN OF CARE AND PATIENT VERBALIZED UNDERSTANDING. PATIENT SPEAKS LITTLE SWEDISH BUT ABLE TO MAKE NEEDS KNOWN. WILL CONT TO MONITOR. 0916AM: PATIENT BS IS 268 . PATIENT REFUSED INSULIN. EXPLAINED RISK AND BENEFITS. PATIENT VERBALIZED UNDERSTANDING. 1000AM: PATIENT IS WATCHING TV SITTING AT THE SIDE OF THE BED. NO ADDITIONAL DISTRESS NOTED. WILL CONT TO MONITOR. 1201PM: PATIENT IS SITTING AT THE SIDE OF THE BED. PATIENT BS IS 218 . PATIENT REFUSED INSULIN. WILL CONT TO MONITOR. 1400: PATIENT IS WATCHING TV. NO ADDITIONAL DISTRESS NOTED. WILL CONT TO MONITOR. 1600: PATIENT IS SITTING AT THE SIDE OF THE BED TALKING TO THE PHONE. NO ADDITIONAL DISTRESS NOTED. WILL CONT TO MONITOR. 1630: BS 120. NO INSULIN NEEDED. GAVE PATIENT 1 CUP OF GELATIN SUGAR FREE. 1800: PATIENT IS SITTING AT THE SIDE OF THE BED EATING HIS DINNER. NO ADDITIONAL DISTRESS NOTED. WILL CONT TO MONITOR. 1830: 12HR CHEST TUBE OUTPUT=10 CC SEROUSANGENOUS. 1845: IV TO THE L HAND DISLODGED. IV INSERTION TO L WRIST USING 20 GAUGE WITH GOOD BLOOD RETURN. SECURE SITE WITH TEGADERM AND TAPE. NO ADDITIONAL DISTRESS NOTED. STABLE CONDITION THROUGHOUT THE SHIFT. CXRAY REPEAT IN AM AND POSSIBLE REMOVAL OF C.T. TOMORROW DEPENDING ON THE CXRAY RESULTS. WILL CONT TO MONITOR.
[2021-02-23] VITALS: BP 105/68
[2021-02-23 06:58] LABS: BASOPHILS # (AUTO) 0.1 K/uL (0.00-0.22); BASOPHILS % (AUTO) 0.8 % (0.0-2.0); EOSINOPHILS # (AUTO) 1.2 K/uL (0-0.4); EOSINOPHILS % (AUTO) 13.9 % (0.0-4.0); HEMATOCRIT 44.5 % (36-52); LYMPHOCYTES # (AUTO) 2.3 K/uL (2.0-11.5); LYMPHOCYTES % (AUTO) 25.4 % (20.5-51.1); MEAN CORPUSCULAR HEMOGLOBIN 30 pg (27-31); MEAN CORPUSCULAR HGB CONC 34 g/dL (33-37); MONOCYTES # (AUTO) 0.5 K/uL (0.8-1.0); MONOCYTES % (AUTO) 5.5 % (1.7-9.3); NEUTROPHILS # (AUTO) 4.9 K/uL (1.8-7.7); NEUTROPHILS % (AUTO) 54.4 % (42.2-75.2); PLATELET COUNT (AUTO) 179 K/uL (140-450); RED CELL DISTRIBUTION WIDTH 14.7 % (11.6-13.7); WHITE BLOOD COUNT (AUTO) 8.9 K/uL (4.8-10.8)
[2021-02-23 07:04] LABS: CREATININE 0.8 mg/dL (0.6-1.3); MAGNESIUM 2.3 mg/dL (1.8-2.4); PHOSPHORUS 3.7 mg/dL (2.5-4.9)
--- NOTE | 2021-02-23 07:39 | NUR ---
RECEIVED BEDSIDE REPORT FROM INNER TUBE TUBER MACHINE OPERATOR NURSE. PATIENT SLEEPING SUPINE IN BED, HOB 30 DEGREES, ANSWERS TO NAME. BREATHING EVEN AND UNLABORED, NO SIGNS OF ACUTE DISTRESS NOTED ON 3L NC. CHEST TUBE TO R SIDE IN PLACE WITH 340ML FLUID NOTED. L H 20G SL. SAP DIRECTOR IN PLACE, SAFETY MEASURES IN PLACE.
[2021-02-23 08:00] VITALS: BP 104/68
[2021-02-23] MEDS: DOCUSATE SODIUM 100 MG GELCAP PO SCH (08:24)
[2021-02-23] MEDS: BLOOD GLUCOSE MONITORING 1 DEV DEV FS SCH ×3 (08:24→21:00)
--- NOTE | 2021-02-23 19:10 | NUR ---
PT SEEN AND ASSESSED. FOUND PT ON ROOM AIR WITH SPO2 OF 92%. CHEST TUBE IN PLACED. PT IS IN NO RESPIRATORY DISTRESS. WILL CONTINUE TO MONITOR PT.
[2021-02-24 01:18] VITALS: BP 105/71
--- NOTE | 2021-02-24 03:39 | NUR ---
the patient sleeps comfortable in his bed, he is expecting CT CHEST WITH CONTRAST TODAY . breathing is even and unlabored .he still has chest tube inserted with low continuous suction , safety and comfort measures were provided.
[2021-02-24 07:24] LABS: ANION GAP 12.5 (8-16); CARBON DIOXIDE 28.4 mmol/L (21-32); CREATININE 0.9 mg/dL (0.6-1.3); POTASSIUM 3.9 mmol/L (3.5-5.1)
[2021-02-24 07:27] LABS: BASOPHILS # (AUTO) 0.1 K/uL (0.00-0.22); BASOPHILS % (AUTO) 0.7 % (0.0-2.0); EOSINOPHILS # (AUTO) 1.3 K/uL (0-0.4); EOSINOPHILS % (AUTO) 15.4 % (0.0-4.0); HEMATOCRIT 44.3 % (36-52); HEMOGLOBIN 14.8 g/dL (12.0-18.0); LYMPHOCYTES # (AUTO) 2.4 K/uL (2.0-11.5); LYMPHOCYTES % (AUTO) 28.6 % (20.5-51.1); MEAN CORPUSCULAR HEMOGLOBIN 30 pg (27-31); MEAN CORPUSCULAR HGB CONC 34 g/dL (33-37); MEAN CORPUSCULAR VOLUME 88.8 fL (80-94); MONOCYTES # (AUTO) 0.4 K/uL (0.8-1.0); MONOCYTES % (AUTO) 5.1 % (1.7-9.3); NEUTROPHILS # (AUTO) 4.2 K/uL (1.8-7.7); NEUTROPHILS % (AUTO) 50.2 % (42.2-75.2); PLATELET COUNT (AUTO) 173 K/uL (140-450); RED BLOOD CELL COUNT(AUTO) 4.99 MIL/uL (4.20-6.10); WHITE BLOOD COUNT (AUTO) 8.3 K/uL (4.8-10.8)
[2021-02-24 07:28] LABS: MAGNESIUM 2.3 mg/dL (1.8-2.4); PHOSPHORUS 3.3 mg/dL (2.5-4.9)
[2021-02-24 08:00] VITALS: BP 101/61
[2021-02-24] MEDS: DOCUSATE SODIUM 100 MG GELCAP PO SCH (09:33)
[2021-02-24] MEDS: BLOOD GLUCOSE MONITORING 1 DEV DEV FS SCH ×4 (09:35→21:55)
[2021-02-24 16:00] VITALS: BP 117/73
--- NOTE | 2021-02-24 18:30 | NUR ---
0715 AM: PATIENT IS RESTING IN BED QUIETLY. NO ADDITIONAL DISTRESS NOTED. CALL LIGHT WITHIN REACH. BED IN LOW AND LOCK POSITION. STABLE CONDITION AT THIS TIME. RIGHT CHEST TUBE WALL TO SUCTION DRAINING SEROUSANGENOUS. WILL CONT TO MONITOR. 0800AM: EXPLAINED PLAN OF CARE AND PATIENT VERBALIZED UNDERSTANDING. PATIENT SPEAKS LITTLE [place] BUT ABLE TO MAKE NEEDS KNOWN. WILL CONT TO MONITOR. 0925AM: PATIENT BS IS 118 . NPO AT THIS TIME. 1000AM: PATIENT IS WATCHING TV SITTING AT THE SIDE OF THE BED. NO ADDITIONAL DISTRESS NOTED. WILL CONT TO MONITOR. 1200PM: PATIENT IS RESTING IN BED. WILL CONT TO MONITOR. 1235PM: PATIENT IS SITTING AT THE SIDE OF THE BED. NPO AT THIS TIME. BS 93 1236PM: LEFT THE UNIT FOR CT WITH CONTRACT IN A STABLE CONDITION. 1245: RETURNED FROM CT SCAN IN A STABLE CONDITION. OKAY TO EAT AT THIS TIME. LUNCH TRAY AT THE BEDSIDE. 1400: PATIENT IS WATCHING TV. NO ADDITIONAL DISTRESS NOTED. WILL CONT TO MONITOR. 1447: CHEST TUBE REMOVED FROM WALL TO SUCTION. WATER SEAL AT THIS TIME PER MD ORDER (DR. COREA). 1600: PATIENT IS SITTING AT THE SIDE OF THE BED TALKING TO HIS ROOMMATES. NO ADDITIONAL DISTRESS NOTED. WILL CONT TO MONITOR. 1630: BS 120. NO INSULIN NEEDED. GAVE PATIENT 1 CUP OF GELATIN SUGAR FREE. 1809: BS OF 146. 1815: PATIENT IS SITTING AT THE SIDE OF THE BED EATING HIS DINNER. NO ADDITIONAL DISTRESS NOTED. WILL CONT TO MONITOR. 1830: 12HR CHEST TUBE OUTPUT=5 CC SEROUSANGENOUS WATER SEALED. NO ADDITIONAL DISTRESS NOTED. STABLE CONDITION THROUGHOUT THE SHIFT. WILL CONT TO MONITOR.
--- NOTE | 2021-02-24 19:55 | NUR ---
PT SEEN AND ASSESSED. FOUND PT ON 2L NASAL CANNULA WITH SPO2 OF 97%. CHEST TUBE IN PLACED. PT IS IN NO RESPIRATORY DISTRESS AT THIS TIME. WILL CONTINUE TO MONITOR PT.
[2021-02-25] VITALS: BP 104/64
[2021-02-25] MEDS: BLOOD GLUCOSE MONITORING 1 DEV DEV FS SCH ×4 (05:07→20:24)
[2021-02-25 06:59] LABS: BASOPHILS % (AUTO) 0.6 % (0.0-2.0); EOSINOPHILS # (AUTO) 1.3 K/uL (0-0.4); EOSINOPHILS % (AUTO) 15.3 % (0.0-4.0); HEMATOCRIT 46.5 % (36-52); HEMOGLOBIN 15.3 g/dL (12.0-18.0); LYMPHOCYTES # (AUTO) 2.4 K/uL (2.0-11.5); LYMPHOCYTES % (AUTO) 27.6 % (20.5-51.1); MEAN CORPUSCULAR HEMOGLOBIN 29 pg (27-31); MEAN CORPUSCULAR HGB CONC 33 g/dL (33-37); MEAN CORPUSCULAR VOLUME 88.9 fL (80-94); MONOCYTES # (AUTO) 0.5 K/uL (0.8-1.0); MONOCYTES % (AUTO) 5.6 % (1.7-9.3); NEUTROPHILS # (AUTO) 4.4 K/uL (1.8-7.7); NEUTROPHILS % (AUTO) 50.9 % (42.2-75.2); PLATELET COUNT (AUTO) 182 K/uL (140-450); RED BLOOD CELL COUNT(AUTO) 5.23 MIL/uL (4.20-6.10); RED CELL DISTRIBUTION WIDTH 14.9 % (11.6-13.7); WHITE BLOOD COUNT (AUTO) 8.7 K/uL (4.8-10.8)
--- NOTE | 2021-02-25 07:15 | NUR ---
Received report from pm nurse. Patient resting in bed, respirations even & nonlabored on O2 @ 2L/min via n/c. Right chest tube in place and intact, no signs of leak.
[2021-02-25 07:16] LABS: ANION GAP 11.2 (8-16); CARBON DIOXIDE 28.5 mmol/L (21-32); CREATININE 0.8 mg/dL (0.6-1.3); POTASSIUM 3.7 mmol/L (3.5-5.1)
[2021-02-25 07:23] LABS: MAGNESIUM 2.5 mg/dL (1.8-2.4); PHOSPHORUS 3.4 mg/dL (2.5-4.9)
[2021-02-25 08:00] VITALS: BP 100/72
--- NOTE | 2021-02-25 08:30 | NUR ---
CT clamped per Dr Duran recommendation. Patient shows no signs of distress, respirations even & nonlabored on O2 @ 2L/min via n/c. Right anterior chest tube in place and intact.
[2021-02-25] MEDS: DOCUSATE SODIUM 100 MG GELCAP PO SCH (08:31)
[2021-02-25] MEDS: POTASSIUM CHLORIDE 10 MEQ TABER PO SCH (08:31)
[2021-02-25 16:00] VITALS: BP 107/73
--- NOTE | 2021-02-25 19:25 | NUR ---
RECEIVED BEDSIDE REPORT FROM AM SHIFT RN. ON 2L NC. PT HAS A CHEST TUBE RT UPPER ANTERIOR CHEST, CLAMPED. NO IVF'S , LEFT HAND 20 G SALINE LOCK. SAFETY MEASURES IN PLACE, CALL LIGHT WITHIN REACH. PT STABLE. WILL CONTINUE TO MONITOR
[2021-02-25] MEDS: INSULIN LISPRO SLIDING SCALE 100 UNITS/ML VIAL SUBQ PRN ×2 (20:22→20:29)
--- NOTE | 2021-02-25 20:22 | NUR ---
PATIENT REFUSED INSULIN. CONTINUED TO EDUCATE PT ON WHY THE INSULIN IS NEEDED BUT STILL REFUSED.
--- NOTE | 2021-02-25 22:42 | NUR ---
PATIENT IS ASLEEP. NO SIGNS OF DISTRESS. PT STABLE. WILL CONTINUE TO MONITOR.
[2021-02-26 04:00] VITALS: BP 106/66
[2021-02-26] MEDS: POTASSIUM CHLORIDE 10 MEQ TABER PO SCH (06:54)
[2021-02-26] MEDS: BLOOD GLUCOSE MONITORING 1 DEV DEV FS SCH ×2 (06:54→11:30)
[2021-02-26] MEDS: INSULIN LISPRO SLIDING SCALE 100 UNITS/ML VIAL SUBQ PRN (06:55)
[2021-02-26 06:56] LABS: BASOPHILS # (AUTO) 0.1 K/uL (0.00-0.22); BASOPHILS % (AUTO) 0.7 % (0.0-2.0); EOSINOPHILS # (AUTO) 1.4 K/uL (0-0.4); EOSINOPHILS % (AUTO) 15.7 % (0.0-4.0); HEMATOCRIT 43.7 % (36-52); HEMOGLOBIN 14.7 g/dL (12.0-18.0); LYMPHOCYTES # (AUTO) 2.5 K/uL (2.0-11.5); LYMPHOCYTES % (AUTO) 26.9 % (20.5-51.1); MEAN CORPUSCULAR HEMOGLOBIN 30 pg (27-31); MEAN CORPUSCULAR HGB CONC 34 g/dL (33-37); MEAN CORPUSCULAR VOLUME 87.9 fL (80-94); MONOCYTES # (AUTO) 0.6 K/uL (0.8-1.0); MONOCYTES % (AUTO) 6.6 % (1.7-9.3); NEUTROPHILS # (AUTO) 4.6 K/uL (1.8-7.7); NEUTROPHILS % (AUTO) 50.1 % (42.2-75.2); PLATELET COUNT (AUTO) 172 K/uL (140-450); RED BLOOD CELL COUNT(AUTO) 4.97 MIL/uL (4.20-6.10); RED CELL DISTRIBUTION WIDTH 14.8 % (11.6-13.7); WHITE BLOOD COUNT (AUTO) 9.1 K/uL (4.8-10.8)
--- NOTE | 2021-02-26 07:15 | NUR ---
RECEIVED PT ON BED AAOX4. NO SOB NOTED. NO C/O PAIN AT THIS TIME. PT IS ON O2 AT 2LPM VIA NASAL CANNULA. RT UPPER CHEST TUBE REMAINS CLAMPED. IV TO LT HAND PATENT AND INTACT. CHEST, DIMINISHED AIR ENTRY TO THE BASES. ABDOMEN SOFT, BOWEL SOUNDS PRESENT. NO EDEMA NOTED. INSTRUCTED PT TO CALL FOR ASSISTANCE, CALL LIGHT WITHIN REACH, PT VERBALIZED UNDERSTANDING.
--- NOTE | 2021-02-26 07:41 | NUR ---
PASSED ON BEDSIDE REPORT TO AM SHIFT RN. PT STABLE.
[2021-02-26 08:00] VITALS: BP 101/68
[2021-02-26 08:07] LABS: ANION GAP 12.8 (8-16); CARBON DIOXIDE 27.3 mmol/L (21-32); CREATININE 0.8 mg/dL (0.6-1.3); POTASSIUM 4.1 mmol/L (3.5-5.1)
[2021-02-26 08:21] LABS: MAGNESIUM 2.4 mg/dL (1.8-2.4); PHOSPHORUS 3.4 mg/dL (2.5-4.9)
[2021-02-26] MEDS: DOCUSATE SODIUM 100 MG GELCAP PO SCH (09:14)
--- NOTE | 2021-02-26 09:45 | NUR ---
RT UPPER CHEST TUBE REMOVED BY DR. HOLLOWAY. NO BLEEDING NOTED, VASELINE GAUZE OVER DRESSING APPLIED TO PREVIOUS RT UPPER CHEST TUBE SITE, SEALED WITH CLOTH TAPE. PT TOLERATED PROCEDURE WELL.
--- NOTE | 2021-02-26 12:00 | NUR ---
DR. NEW ON ROUNDS. OXYGEN REMOVED, PT'S SATS ON ROOM AIR IS AT 95%. WILL CONTINUE TO MONITOR PT.
[2021-02-26] MEDS ORDERED: ACET-1182 PO (13:41)
[2021-02-26 16:00] VITALS: BP 105/75
--- NOTE | 2021-02-26 17:30 | NUR ---
DISCHARGE INSTRUCTIONS GIVEN TO PT WHICH VERBALIZED FULL UNDERSTANDING OF THE INSTRUCTIONS GIVEN AND THE NEED TO FF UP WITH DR. NEW IN 1-2 WEEKS. PT ALSO MADE AWARE THAT HIS NEW PRESCRIPTION WERE SENT TO HIS PREFERRED PHARMACY. ARM BANDS AND IV REMOVED, CANNULA TIP INTACT. PT WAITING FOR TO PICK HIM UP.
--- NOTE | 2021-02-26 17:40 | NUR ---
PT WHEELED TO THE FRONT LOBBY IN STABLE CONDITION. NO COMPLAINTS MADE. PT IS D/C HOME WITH . PT WENT HOME ON ROOM AIR, RT UPPER CHEST PREVIOUS CHEST TUBE SITE, DRESSING CLEAN DRY AND INTACT. PT'S OWN O2 TANK (EMPTY) SENT HOME WELL WITH PT .
== END 2021-02-26 17:49 | disposition home or self-care (01) | DRG 143 ==
LOC: MED 23:57 → MTU 02-13 07:42
PROVIDERS: ADMIT Internal Medicine; ATTEND Internal Medicine
PROC: 0W9930Z Drainage of Right Pleural Cavity with Drainage Device, Percutaneous Approach (ICD-10-PCS; principal; 2021-02-13)
DX: J93.83 Other pneumothorax (principal); J96.01 Acute respiratory failure with hypoxia; U09.9 Post COVID-19 condition, unspecified; E66.9 Obesity, unspecified; E78.5 Hyperlipidemia, unspecified; E11.9 Type 2 diabetes mellitus without complications; J43.9 Emphysema, unspecified; J84.9 Interstitial pulmonary disease, unspecified; Z20.822 Contact with and (suspected) exposure to COVID-19; Z68.33 Body mass index [BMI] 33.0-33.9, adult; Z87.891 Personal history of nicotine dependence
CPT/HCPCS: 32551; 36415; 36600; 71045; 71250; 71260; 80048; 80053; 82803; 82948; 83036; 83605; 83735; 83880; 84100; 85025; 85610; 87040; 87081; 96374; 99291; J1815; J2001; J2270; Q0092; Q9967

== ENCOUNTER 2021-03-09 20:40 | Inpatient (IN) | payer OTHER, SELFPAY ==
[~2021-03-09] VITALS: Ht 170.2 cm; Wt 80.7 kg
[~2021-03-09 20:40] MED LIST: ACET-1182 PO; ATOR40TA PO; METF-1197 PO
[2021-03-09 20:48] VITALS: BP 142/97
--- NOTE | 2021-03-09 21:10 | NUR ---
COMPREHENSIVE ASSESSMENT DONE WITH BUSINESS DEVELOPMENT CONSULTANT AT BEDSIDE. PT NOTED WITH DRESSING AT RIGHT CHEST WALL DIRTY AND PEELING PT INITIALLY INDICATES DIALYSIS ACCESS BUT LATER SAYS IT IS FOR LUNGS. POOR HISTORIAN. REMOVED ONCE ERMD IS AT BEDSIDE. SITE CLEAR UNDER DRESSING WITH REDNESS NOTED AT TAPE SITE WITH SMALL PIN-SIZED AREA OPEN UNDER DRESSING. PT INDICATES PREVIOUS CHEST TUBE D/T PNEUMOTHROAX. LUNGS DIMINISHED RLL, NO COUGH NO RESP DISTRESS NOTED BUT 88-91% ON 4LPM VIA NC.
--- NOTE | 2021-03-09 21:14 | NUR ---
Dr. Leyva examining patient.
[2021-03-09 22:03] LABS: BASOPHILS % (AUTO) 0.3 % (0.0-2.0); EOSINOPHILS # (AUTO) 0.1 K/uL (0-0.4); EOSINOPHILS % (AUTO) 0.8 % (0.0-4.0); HEMATOCRIT 48.1 % (36-52); HEMOGLOBIN 16.1 g/dL (12.0-18.0); LYMPHOCYTES # (AUTO) 0.8 K/uL (2.0-11.5); LYMPHOCYTES % (AUTO) 8.1 % (20.5-51.1); MEAN CORPUSCULAR HEMOGLOBIN 29 pg (27-31); MEAN CORPUSCULAR HGB CONC 34 g/dL (33-37); MEAN CORPUSCULAR VOLUME 87.1 fL (80-94); MONOCYTES # (AUTO) 0.3 K/uL (0.8-1.0); MONOCYTES % (AUTO) 3.4 % (1.7-9.3); NEUTROPHILS # (AUTO) 8.5 K/uL (1.8-7.7); NEUTROPHILS % (AUTO) 87.4 % (42.2-75.2); PLATELET COUNT (AUTO) 184 K/uL (140-450); RED BLOOD CELL COUNT(AUTO) 5.52 MIL/uL (4.20-6.10); RED CELL DISTRIBUTION WIDTH 15.5 % (11.6-13.7); WHITE BLOOD COUNT (AUTO) 9.7 K/uL (4.8-10.8)
--- NOTE | 2021-03-09 22:26 | NUR ---
Dr. Bullock examining patient.
[2021-03-09] MEDS ORDERED: LIDOCAINE MPF 1% 5 ML ONE (22:34)
[2021-03-09 22:35] LABS: ANION GAP 15.6 (8-16); CARBON DIOXIDE 23.6 mmol/L (21-32); CREATININE 0.8 mg/dL (0.6-1.3); POTASSIUM 4.2 mmol/L (3.5-5.1); TOTAL BILIRUBIN 0.7 mg/dL (0.0-1.0)
--- NOTE | 2021-03-09 22:40 | NUR ---
KENNEDY OBTAINED. WALKED UA AND KENNEDY TO LAB LOGGED INTO BOOK AND HANDED TO [employer].
[2021-03-09 22:53] LABS: APPEARANCE,URINE CLEAR (CLEAR); BILIRUBIN,URINE NEGATIVE (NEGATIVE); BLOOD, URINE TRACE-I (NEGATIVE); COLOR,URINE YELLOW (YELLOW); LEUKOCYTE ESTERASE ,URINE NEGATIVE (NEGATIVE); NITRITE, URINE NEGATIVE (NEGATIVE); UGLUCOSE TRACE (NEGATIVE)
--- NOTE | 2021-03-09 22:56 | NUR ---
PT CONTIUNES IN DEPT PENDING CHEST TUBE PLACEMENT. NO RESP CHANGES NOTED. NO CHANGES IN O2 SAT NOTED.
[2021-03-09 23:03] LABS: RBC,URINE 0-5 /HPF (0-5); WBC,URINE 0-5 /HPF (0-5)
[2021-03-10] MEDS ORDERED: LIDOCAINE MPF 1% 5 ML ONE (00:54)
--- NOTE | 2021-03-10 01:00 | NUR ---
CHEST TUBE COMPLETED WITHOUT DIFFICULTY. CHAMBER PLACED BELOW LEVEL OF HEART. WITH 20 CM OF WATER AND SUCTION AT 80. PT TOLERATING CHEST TUBE WELL O2 SATURATION IS 92% AT THIS TIME RRE/U AND INDICATING HE FEELS "MUCH BETTER" SMILING AND LAUGHING AFTER SECOND DOSE OF PAIN MDICATION. PENDING BED ASSIGNMENT. MEDICATED DURING PROCEDURE WITH MORPHINE AND ZOFRAN PER ORDERS FOR PAIN AND NAUSEA. SOMEWHAT EFFECTIVE BUT STILL HAS PAIN. PT GRIMACING AND MOANING DURING PROCEDURE. AFTER MEDICATION PT PROVIDED FOOD, ABLE TO TOLERATE WITHOUT DIFFICULTY.
[2021-03-10] MEDS ORDERED: ONDANSETRON 4 MG/2 ML VIAL IM ONE (01:10)
[2021-03-10] MEDS ORDERED: MORPHINE SULFATE 4 MG/ML SYR IVP ONE (01:10)
--- NOTE | 2021-03-10 01:54 | NUR ---
PER DR. KIET CARDOSOFRNADIRA 4MG TO BE GIVEN IVP NOT IM. ORDER CARRIED OUT.
[2021-03-10] MEDS ORDERED: ZOLPIDEM 5 MG TAB PO PRN (02:15)
[2021-03-10] MEDS ORDERED: KCL 20 MEQ/WATER INJ PREMIX 200 ML IV PRN (02:15)
[2021-03-10] MEDS ORDERED: MAGNESIUM OXIDE 400 MG TAB PO PRN (02:15)
[2021-03-10] MEDS ORDERED: AZITHROMYCIN 250 MG TAB PO ONE (02:15)
[2021-03-10] MEDS ORDERED: MAG SULF 2000 MG/WATER PREMIX 50 ML IV PRN (02:15)
[2021-03-10] MEDS ORDERED: POTASSIUM CHLORIDE 10 MEQ TABER PO PRN (02:15)
[2021-03-10] MEDS ORDERED: ONDANSETRON 4 MG/2 ML VIAL IVP PRN (02:15)
[2021-03-10] MEDS ORDERED: cefTRIAXone 1,000 MG VIAL ONE (02:26)
--- NOTE | 2021-03-10 02:51 | NUR ---
LAB AT BEDSIDE
--- NOTE | 2021-03-10 02:52 | NUR ---
RECEIVED RT REQUEST FROM DR. RAYMUNDO. PT SEEN IN ER NO SIGNS OF RESPIRATORY DISTRESS, RIGHT SIDE CHEST TUBE IN PLACE, ON 4LPM N/C SATING 94%. BS CLEAR AND DIMINISHED NO WHEEZING NOTED. NO HX OF ASTHMA OR COPD PER PT. ORDERED O2 TO KEEP SAT >92%. WILL CONTINUE TO MONITOR PT.
--- NOTE | 2021-03-10 03:05 | NUR ---
ATTEMPT TO CALL REPORT RECEIVING RN ON BREAK TO CALL BACK IN 30 MINUTES
--- NOTE | 2021-03-10 03:49 | NUR ---
REPORT TO [facility]. ALL QUESTIONS ANSWERED.
--- NOTE | 2021-03-10 04:00 | NUR ---
TO FLOOR WITH ACLS PROTOCOL AN CHEST TO TO SUCTION
[2021-03-10] MEDS: NACL 0.9% 1,000 ML IV SCH ×2 (05:30→14:52)
[2021-03-10 05:31] VITALS: BP 109/69
--- NOTE | 2021-03-10 05:41 | NUR ---
the patient was admitted for pneumothorax, right side chest tube, management protocol was followed.the patient was admitted two weeks ago for pneumothorax. no sob and no complain of pain. vitals are stable. O2 is 92%. comfort and safety measures are provided. bed is low position.
--- NOTE | 2021-03-10 07:35 | NUR ---
RECEIVED PATIENT REPORT FROM LAND MANAGER NURSE FOR CONTINUITY OF CARE. PT IS AOX4, ABLE TO MAKE NEEDS KNOWN. ON 4L NC WITH NO RESPIRATORY DISTRESS. SKIN IS INTACT OTHER THAN RIGHT LATERAL CHEST TUBE. INTACT AND IN PLACE. IV SITE ON LH 20 G INTACT AND PATENT INFUSING FLUIDS WELL. DENIES PAIN AT THE MOMENT. PLAN OF CARE DISCUSSED. SAFETY PRECAUTIONS IN PLACE CALL LIGHT WITHIN REACH. WILL CONTINUE TO MONITOR.
[2021-03-10 08:00] VITALS: BP 107/73
--- NOTE | 2021-03-10 08:40 | NUR ---
RECEIVED PT ON 4L NC SATING 95% WITH NO SIGNS OF RESP DISTRESS. CHEST TUBE STILL IN PLACE. WILL CONTINUE TO MONITOR AND TITRATE FIO2 TOLERATED BY PT TO KEEP SPO2 >92%
--- NOTE | 2021-03-10 09:04 | NUR ---
PATIENT HAS BEEN SCREENED AND CATEGORIZED MODERATE NUTRITION RISK. PATIENT WILL BE SEEN WITHIN 3-5 DAYS OF ADMISSION. 03/12/21 03/14/[address]
--- NOTE | 2021-03-10 09:30 | NUR ---
NO SCHEDULED MEDS GIVEN. PT IS STABLE. NO DISTRESS NOTED. WILL CONTINUE TO MONITOR.
[2021-03-10 12:00] VITALS: BP 104/68
--- NOTE | 2021-03-10 12:00 | NUR ---
CHECKED ON PATIENT. PT IS STABLE. NO DISTRESS NOTED. WILL CONTINUE TO MONITOR.
[2021-03-10] MEDS ORDERED: COMMUNICATION ORDER MC SCH (13:00)
--- NOTE | 2021-03-10 13:31 | NUR ---
PER DR RAMEY PLACED PT ON NRB UNTIL RESULT OF CXR IS RECEIVED TO SEE PROGRESS OF PNEUMOTHORAX. PT STABLE WITH SPO2 OF 99%
--- NOTE | 2021-03-10 13:40 | NUR ---
PATIENT IS NOW ON NRB 15L. O2 SATURATION AT 98%
[2021-03-10 16:00] VITALS: BP 109/69
[2021-03-10] MEDS: ACETAMINOPHEN 325 MG TAB PO PRN (16:11)
--- NOTE | 2021-03-10 16:14 | NUR ---
PATIENT COMPLAINED OF MILD PAIN 3/10 AT LOWER RIGHT CHEST. ADMINISTERED PRN PAIN MEDS PER MD ORDERED.
--- NOTE | 2021-03-10 18:57 | NUR ---
RECEIVED PT ON NRB @ 13 LPM PENDING RESULT OF CXR IN THE MORNING TO SEE PROGRESS OF PNEUMOTHORAX. PT LAYING IN BED WITH HOB ELEVATED, NO SIGNS OF RESPIRATORY DISTRESS, BS CLEAR DIMINISHED THROUGHOUT. WILL CONTINUE TO MONITOR.
--- NOTE | 2021-03-10 19:35 | NUR ---
ENDORSED TO DIABETES PHYSICIAN NURSE FOR CONTINUITY OF CARE. PT IS STABLE.
--- NOTE | 2021-03-10 19:36 | NUR ---
RECEIVED REPORT FROM AM NURSE. PATIENT IS WELL RESTED WITH NON REBREATHER MASK AT 15 LPM. NO S/S IF RESPIRATORY DISTRESS. BREATHING EVEN UNLABORED. RIGHT LATERAL CHEST TUBE DRAINING BLOODY OUTPUT. ALL SAFETY MEASURES ARE IN PLACE. SKIN WARM AND DRY TO THE TOUCHCALL LIGHT WITHIN EASY REACH. NO COMPLAINTS OF PAIN AT THIS TIME. WILL CONTINUE TO MONITOR.
[2021-03-10 20:00] VITALS: BP 105/69
--- NOTE | 2021-03-10 21:23 | NUR ---
ADMINISTERED SCHEDULED ROCEPHIN IVPB ORDERED.
[2021-03-10] MEDS: AZITHROMYCIN 500 MG in DEXTROSE 5% 250 ML IV SCH (22:15)
--- NOTE | 2021-03-10 22:15 | NUR ---
ZITHROMAX IVPB GIVEN ORDERED. CALL LIGHT WITHIN REACH.
[2021-03-11] VITALS: BP 109/76
[2021-03-11] MEDS: NACL 0.9% 1,000 ML IV SCH ×2 (03:15→15:46)
--- NOTE | 2021-03-11 03:44 | NUR ---
ROUNDING OF PATIENT, PT ASLEEP NO DISTRESS NOTED. CALL LIGHT WITHIN REACH. SAFETY MEASURES IN PLACE.
[2021-03-11 04:00] VITALS: BP 116/74
[2021-03-11 05:33] LABS: BASOPHILS % (AUTO) 0.4 % (0.0-2.0); EOSINOPHILS # (AUTO) 0.8 K/uL (0-0.4); EOSINOPHILS % (AUTO) 9.4 % (0.0-4.0); HEMATOCRIT 43.2 % (36-52); HEMOGLOBIN 14.3 g/dL (12.0-18.0); LYMPHOCYTES # (AUTO) 1.9 K/uL (2.0-11.5); LYMPHOCYTES % (AUTO) 21.7 % (20.5-51.1); MEAN CORPUSCULAR HEMOGLOBIN 29 pg (27-31); MEAN CORPUSCULAR HGB CONC 33 g/dL (33-37); MEAN CORPUSCULAR VOLUME 88.3 fL (80-94); MONOCYTES # (AUTO) 0.6 K/uL (0.8-1.0); MONOCYTES % (AUTO) 7.2 % (1.7-9.3); NEUTROPHILS # (AUTO) 5.4 K/uL (1.8-7.7); NEUTROPHILS % (AUTO) 61.3 % (42.2-75.2); PLATELET COUNT (AUTO) 147 K/uL (140-450); RED BLOOD CELL COUNT(AUTO) 4.89 MIL/uL (4.20-6.10); RED CELL DISTRIBUTION WIDTH 15.5 % (11.6-13.7); WHITE BLOOD COUNT (AUTO) 8.8 K/uL (4.8-10.8)
[2021-03-11 05:45] LABS: ALBUMIN 3.3 g/dL (3.4-5.0); ANION GAP 11.6 (8-16); CARBON DIOXIDE 28.2 mmol/L (21-32); CREATININE 0.9 mg/dL (0.6-1.3); MAGNESIUM 2.3 mg/dL (1.8-2.4); POTASSIUM 3.8 mmol/L (3.5-5.1); TOTAL BILIRUBIN 0.6 mg/dL (0.0-1.0)
[2021-03-11] MEDS: ACETAMINOPHEN 325 MG TAB PO PRN ×2 (06:02→20:41)
--- NOTE | 2021-03-11 07:32 | NUR ---
ENDORSED PATIENT TO AM NURSE FOR CONTINUITY OF CARE. PATIENT IS STABLE
--- NOTE | 2021-03-11 07:40 | NUR ---
RECEIVED PATIENT REPORT FROM LOCK ASSEMBLER NURSE FOR CONTINUITY OF CARE. PT IS AOX4, ABLE TO MAKE NEEDS KNOWN. ON 15L NRB WITH NO RESPIRATORY DISTRESS. SKIN IS INTACT OTHER THAN RIGHT LATERAL CHEST TUBE. INTACT AND IN PLACE. IV SITE ON LH 20 G INTACT AND PATENT INFUSING FLUIDS WELL. DENIES PAIN AT THE MOMENT. PLAN OF CARE DISCUSSED. SAFETY PRECAUTIONS IN PLACE CALL LIGHT WITHIN REACH. WILL CONTINUE TO MONITOR.
[2021-03-11 08:00] VITALS: BP 96/60
--- NOTE | 2021-03-11 09:30 | NUR ---
NO SCHEDULED MEDS GIVEN. PT IS STABLE. NO DISTRESS NOTED. WILL CONTINUE TO MONITOR.
[2021-03-11] MEDS ORDERED: DOXYCYCLINE IV SCH (10:00)
[2021-03-11] MEDS ORDERED: NACL 0.9% IV SCH (10:00)
--- NOTE | 2021-03-11 10:32 | NUR ---
DC PLANNIN YRS OLD MALE PATIENT WAS ADMITTED FROM HOME WITH A DX OF PNEUMOTHORAX. PATIENT HAS A HX OF LEFT SIDED PNEUMOTHORAX, DM AND HTN. PATIENT WAS DISCHARGED FROM THE HOSPITAL 02/26. CXR SHOWED 20% PNEUMOTHORAX. RAPID COVID TEST NEGATIVE. CHEST TUBE INSERTED BY DR HOLLOWAY. ADMINISTERED IVF, AZITHROMYCIN AND ROCEPHIN IV ABX. ON 15L NON-REBREATHER MASK SATING 99%. CONSULTED WITH [facility]ULMO. DC PLANNING PER PT RESPOND TO THE TREATMENT. Addendum: 03/11/21 at 1435 by Krissy Sanchez CM PATIENT IS A 55-YEAR-OLD MALE ADMITTED ON A 03/10/2021 FROM THE [facility]/ED DUE TO SHORTNESS OF BREATH WITH SOME CHEST DISCOMFORT. CLAIR MET WITH PATIENT AT BEDSIDE TO DISCUSS AND GATHER HIS COLLATERAL INFORMATION. PATIENT REPORTED LIVING AT HOME WITH HIS SIGNIFICANT OTHER JACOBY BAEZA WHO IS ALSO PATIENT'S EMERGENCY CONTACT. PATIENT REPORTED NOT HAVING ADVANCE DIRECTIVES, AND INTERESTED ON GETTING INF. PACKET PROVIDED BY THESE COLLAR CLOSER LOCKSTITCH DURING THE VISIT. PATIENT REPORTED NOT HAVING ANY ISSUES GETTING OR TAKING HIS MEDICATIONS FROM THE [facility] IN [address] [place] [address] IN [facility]. PATIENT STATED THAT HE HAS DME AT HOME WITH [employer],A WALKER AND A WHEELCHAIR. CLAIR INFORMED PATIENT THAT A FOLLOW UP APPOINTMENT WILL BE SCHEDULED BY THESE COLLAR CLOSER LOCKSTITCH FOR HIM TO SEE HIS PCP WITHIN 7 DAYS OF DISCHARGE FROM [facility]. PATIENT AGREED AND REPORTED THAT HIS PCP IS BOLA FERRIS IN [place]. PER PATIENT HIS LAST VISIT WITH WAS ABOUT 2 MONTHS AGO. PER PATIENT HE WILL BE GOING BACK HOME WITH THE ASSISTANCE OF HIS SIGNIFICANT OTHER JACOBY BAEZA WHO WILL PICK HIM UP AND TAKE HIM HOME WHEN HE IS READY FOR DC FROM [facility]. SW THANK HIM FOR THE INFORMATION PROVIDED AND LEFT THE ROOM. SW WILL FOLLOW UP NEEDED. Addendum: 03/14/21 at 1052 by Mayi Ortiz RN DC PLANNING: PER DR NGUYEN TO TRANSFER TO HIGHER LEVEL OF CARE FOR THORACIC SURGEON. FAXED TO [facility], [facility] , [facility] AND [facility]. CM TO FOLLOW Addendum: 03/14/21 at 1246 by Mayi Ortiz RN DC PLANNING: RECEIVED A CALL FROM [facility] BRIANA SPOKE WITH ROBYN BARAHONA THORACIC SURGEON DECLINED RECOMMENDED TO LEAVE THE CHEST TUBE IN AND NO SURGERY NEEDED. CALLED [facility] SPOKE WITH SARAVANAN WARREN STATED NEEDS THE ADMITTING DR TO CALL THEM. CM TO FOLLOW Addendum: 03/14/21 at 1508 by Mayi Ortiz RN DC PLANNING: CALLED [facility] SPOKE WITH HOUSE BRIANA STATED DR MANN NEEDS TO CALL HER ,I CALLED DR MANN STATED DR NGUYEN JUST TEXT HIM NO NEEDS TO TRANSFER. AWAITING FROM DR CROOKS TO CLARIFY . FAXED TO [facility] CM TO FOLLOW Addendum: 03/14/21 at 1511 by Mayi Ortiz RN DC PLANNING RECEIVED A CALL FROM DR CROOKS STATED NO NEEDS TO TRANSFER. CANCELED HIGHER LEVEL. CM TO FOLLOW Addendum: 03/15/21 at 1250 by Mayi Ortiz RN DC PLANNING: RECEIVED A MESSAGE FROM DR NGUYEN STATED HE IS TALKING TO A DR WHO IS DOING SPECIAL PROCEDURE AND CALL BACK. RECEIVED A CALL FROM [facility] TRANSFER [facility]NER SPOKE WITH ROBYN FERMIN AWAITING FOR DR CRABTREE TO CALL AND DISCUSS WITH [facility] THORACIC SURGEON Addendum: 03/15/21 at 1634 by Mayi Ortiz RN DC PLANNING: CALLED [facility] SPOKE WITH DEMETRI GONZALEZ THE AUTH FOR [facility] [phone] CALLED [facility] SPOKE WITH ROBYN WARREN STATED STILL NO BED. ARRANGE TRANSPORT WITH [facility] PLACE IT WILL CALL. PER ROBYN FROM [facility] WILL CALL THE UNIT ONCE SHE HAS THE BED. ACCEPTING DR WILL BE DR RAYMUNDO. CM TO FOLLOW Addendum: 03/16/21 at 0913 by Mayi Ortiz RN DC PLANNING: CALLED [facility] CYNDI WARREN SPOKE WITH NIKKO STATED NEEDS THE LATEST COVID TEST AND WILL CALL ONCE BED IS AVAILABLE. CM TO FOLLOW Addendum: 03/16/21 at 1629 by Mayi Ortiz RN DC PLANNING: [facility] FILOMENA KILLIAN WITH NIKKO WARREN STATED STILL NO BED AVAILABLE ,ONCE SHE HAS A BED WILL CALL NOTIFIED [facility] TO FOLLOW. ARRANGED TRANSPORT WITH [facility] ,PLACE IT WILL CALL. CM TO FOLLOW.
--- NOTE | 2021-03-11 10:45 | NUR ---
DR. RAMEY AT PATIENT'S BEDSIDE. MD WILL NOT BE DOING THE BEDSIDE PLEURODESIS PROCEDURE. NOTIFIED PHARMACY AND THEY ARE AWARE.
[2021-03-11] MEDS ORDERED: BENZONATATE 100 MG CAPLF PO PRN (10:50)
[2021-03-11 12:00] VITALS: BP 101/62
--- NOTE | 2021-03-11 14:15 | NUR ---
PATIENT TRANSFERRED TO RADIOLOGY FOR CT PROCEDURE.
--- NOTE | 2021-03-11 14:15 | NUR ---
PLACED PT ON HFNC 10L 100% PER DR RAMEY'S PROGRESS NOTE. DR RAMEY ALSO GAVE A VERBAL ORDER TO THE RN TO PLACE PT ON HFNC 100%.
--- NOTE | 2021-03-11 14:16 | NUR ---
RT AT PATIENT'S BEDSIDE SETTING UP HI FLOW FOR PATIENT.
--- NOTE | 2021-03-11 14:20 | NUR ---
PATIENT BROUGHT BACK FROM RADIOLOGY. PT IS STABLE. NO DISTRESS NOTED. WILL CONTINUE TO MONITOR
[2021-03-11 16:00] VITALS: BP 121/79
--- NOTE | 2021-03-11 16:45 | NUR ---
CHECKED ON PATIENT. PATIENT IS STABLE. NO DISTRESS NOTED. WILL CONTINUE TO MONITOR.
--- NOTE | 2021-03-11 19:30 | NUR ---
ENDORSED TO SIGN LANGUAGE TRANSLATOR NURSE FOR CONTINUITY OF CARE. PT IS STABLE.
--- NOTE | 2021-03-11 19:31 | NUR ---
RECEIVED REPORT FROM AM NURSE FOR CONTINUITY OF CARE. PATIENT IS RESTING. NO S/S OF DISTRESS. RESPIRATION IS EVEN UNLABORED. ON HI FLOW AT 8L TOLERATING WELL. CHEST TUBE INTACT DRAINING BLOODY OUTPUT. CALL LIGHT WITHIN REACH. NO COMPLAINTS OF PAIN AT THIS TIME. WILL CONTINUE TO MONITOR.
[2021-03-11 20:00] VITALS: BP 104/61
--- NOTE | 2021-03-11 20:24 | NUR ---
SCHEDULED MEDS GIVEN ORDERED.
--- NOTE | 2021-03-11 22:04 | NUR ---
LOWERED LITER FLOW TO 6L. PATIENT FELT THE FLOW WAS TO HIGH.FIO2 IS STILL AT 100%. SATS ARE 98% AT THIS TIME
[2021-03-11] MEDS: AZITHROMYCIN 500 MG in DEXTROSE 5% 250 ML IV SCH (22:18)
[2021-03-12] VITALS: BP 104/61
--- NOTE | 2021-03-12 03:18 | NUR ---
ROUNDING PATIENT, PT IS SLEEPING. NO SOB NOTED. CALL LIGHT WITHIN REACH.
[2021-03-12 04:00] VITALS: BP 114/74
[2021-03-12] MEDS: NACL 0.9% 1,000 ML IV SCH ×2 (04:15→15:40)
[2021-03-12 06:02] LABS: BASOPHILS % (AUTO) 0.3 % (0.0-2.0); EOSINOPHILS # (AUTO) 0.8 K/uL (0-0.4); EOSINOPHILS % (AUTO) 9.9 % (0.0-4.0); HEMATOCRIT 42.1 % (36-52); LYMPHOCYTES % (AUTO) 25.6 % (20.5-51.1); MEAN CORPUSCULAR HEMOGLOBIN 29 pg (27-31); MEAN CORPUSCULAR HGB CONC 33 g/dL (33-37); MEAN CORPUSCULAR VOLUME 88.4 fL (80-94); MONOCYTES # (AUTO) 0.5 K/uL (0.8-1.0); MONOCYTES % (AUTO) 5.9 % (1.7-9.3); NEUTROPHILS # (AUTO) 4.5 K/uL (1.8-7.7); NEUTROPHILS % (AUTO) 58.3 % (42.2-75.2); PLATELET COUNT (AUTO) 147 K/uL (140-450); RED BLOOD CELL COUNT(AUTO) 4.76 MIL/uL (4.20-6.10); RED CELL DISTRIBUTION WIDTH 15.3 % (11.6-13.7); WHITE BLOOD COUNT (AUTO) 7.7 K/uL (4.8-10.8)
[2021-03-12 06:12] LABS: ALBUMIN 3.1 g/dL (3.4-5.0); ANION GAP 8.6 (8-16); CREATININE 0.7 mg/dL (0.6-1.3); MAGNESIUM 2.2 mg/dL (1.8-2.4); POTASSIUM 3.6 mmol/L (3.5-5.1); TOTAL BILIRUBIN 0.5 mg/dL (0.0-1.0)
--- NOTE | 2021-03-12 07:29 | NUR ---
ENDORSED TO AM SHIFT NURSE FOR CONTINUITY OF CARE. PATIENT IS STABLE.
--- NOTE | 2021-03-12 07:35 | NUR ---
RECEIVED BEDSIDE REPORT FROM MEDICAL SCIENCE LIAISON NURSE FOR CONTINUITY OF CARE. PT IS STABLE WITH NO RESPIRATORY DISTRESS NOTED. CHEST TUBE IS STILL IN PLACE WITH LOW SUCTION. SKIN IS WARM, DRY, AND NON-INTACT. IV SITE ON LH 20 G INTACT AND PATENT. INFUSING FLUIDS WELL. DENIES PAIN AT THE MOMENT. PLAN OF CARE DISCUSSED. SAFETY PRECAUTIONS IN PLACE. CALL LIGHT WITHIN REACH. WILL CONTINUE TO MONITOR.
[2021-03-12 08:00] VITALS: BP 97/59
--- NOTE | 2021-03-12 09:10 | NUR ---
NO SCHEDULED MEDS GIVEN. PT IS STABLE. NO DISTRESS NOTED. WILL CONTINUE TO MONITOR.
--- NOTE | 2021-03-12 11:15 | NUR ---
CHECKED PATIENT. PT IS STABLE. NO DISTRESS NOTED. WILL CONTINUE TO MONITOR.
[2021-03-12] MEDS ORDERED: guaiFENesin 600 MG TABER PO PRN (11:50)
[2021-03-12 12:00] VITALS: BP 127/76
--- NOTE | 2021-03-12 13:03 | NUR ---
ENDORSED TO KIT SAMANIEGO FOR CONTINUITY OF CARE. PT IS STABLE
--- NOTE | 2021-03-12 13:04 | NUR ---
RECEIVED REPORT FROM REJI PANTOJA
--- NOTE | 2021-03-12 15:39 | NUR ---
TYLENOL FOR PAIN 08/14 AND PROMETHAZINE WITH CODEINE FOR COUGH GIVEN ORDERED
[2021-03-12] MEDS: ACETAMINOPHEN 325 MG TAB PO PRN (15:40)
[2021-03-12] MEDS: PROMETH/CODEINE 6.25-10MG/5ML 5 ML UDC PO PRN (15:40)
[2021-03-12 16:00] VITALS: BP 119/72
--- NOTE | 2021-03-12 17:34 | NUR ---
PT SITTING IN BED, FAMILY AT BEDSIDE, NO COMPLAINTS AT THIS TIME
[2021-03-12 20:00] VITALS: BP 120/77
[2021-03-12] MEDS: AZITHROMYCIN 500 MG in DEXTROSE 5% 250 ML IV SCH (21:00)
[2021-03-13] VITALS: BP 125/77
[2021-03-13] MEDS: MORPHINE SULFATE 4 MG/ML SYR IVP PRN ×2 (00:10→22:42)
--- NOTE | 2021-03-13 01:50 | NUR ---
PATIENT AWAKE ALERT HAS RIGHT SIDE CHEST-TUBE NO SOUND OF LEAKING PLEURAL VAC AT 20CM BUBBLING AND CONTINUES SUCTION WITH YELLOWISH SMALL AMT. OF DRAINAGE.JESS CLAMPS AT BED SIDE. PATIENT ON HIGH FLOW 5 LITER SAT 100% ON MONITOR SINUS LUNG SOUND DIMINISH. TEMP.98.7. PATIENT USING URINAL.PATIENT C/O OF RIGHT SIDE PAIN MEDICATED WITH MORPHINE 2 MG IVP NO SIGNS OF RESP. DISTRESS.
[2021-03-13 04:00] VITALS: BP 128/74
[2021-03-13 06:13] LABS: BASOPHILS % (AUTO) 0.7 % (0.0-2.0); EOSINOPHILS # (AUTO) 0.9 K/uL (0-0.4); EOSINOPHILS % (AUTO) 13.4 % (0.0-4.0); HEMATOCRIT 41.9 % (36-52); LYMPHOCYTES # (AUTO) 1.7 K/uL (2.0-11.5); MEAN CORPUSCULAR HEMOGLOBIN 29 pg (27-31); MEAN CORPUSCULAR HGB CONC 33 g/dL (33-37); MEAN CORPUSCULAR VOLUME 87.9 fL (80-94); MONOCYTES # (AUTO) 0.5 K/uL (0.8-1.0); MONOCYTES % (AUTO) 7.5 % (1.7-9.3); NEUTROPHILS # (AUTO) 3.3 K/uL (1.8-7.7); NEUTROPHILS % (AUTO) 51.4 % (42.2-75.2); PLATELET COUNT (AUTO) 153 K/uL (140-450); RED BLOOD CELL COUNT(AUTO) 4.76 MIL/uL (4.20-6.10); WHITE BLOOD COUNT (AUTO) 6.5 K/uL (4.8-10.8)
[2021-03-13 06:25] LABS: ANION GAP 8.3 (8-16); CARBON DIOXIDE 31.6 mmol/L (21-32); CREATININE 0.8 mg/dL (0.6-1.3); MAGNESIUM 2.2 mg/dL (1.8-2.4); POTASSIUM 3.9 mmol/L (3.5-5.1); TOTAL BILIRUBIN 0.4 mg/dL (0.0-1.0)
--- NOTE | 2021-03-13 07:25 | NUR ---
RECEIVED REPORT FROM PM NURSE JENNY. PATIENT RESTING IN BED, AWAKE, NO C/O PAIN/DISCOMFORT, RESPIRATIONS EVEN & NONLABORED ON O2 @ 5LPM 100% FIO2 VIA HIFLOW N/C. RIGHT CHEST TUBE INTACT AND IN PLACE CONNECTED TO CONTINUOUS SUCTION. LEFT FOREARM IV 20G INTACT AND ASYMPTOMATIC WITH ONGOING NS @ 80ML/HR. CALL LIGHT WITHIN REACH.
[2021-03-13 08:00] VITALS: BP 109/72
[2021-03-13] MEDS: NACL 0.9% 1,000 ML IV SCH ×3 (08:00→22:00)
--- NOTE | 2021-03-13 11:00 | NUR ---
Patient resting in bed, watching TV. Pt shows no signs or symptoms of distress, respirations even & nonlabored on O2 @ 5LPM 100% FiO2 via hiflow n/c. Right chest tube in place with continuous suction.
[2021-03-13 12:00] VITALS: BP 112/67
--- NOTE | 2021-03-13 12:30 | NUR ---
Patient sitting up at bedside, eating lunch. Patient is asymptomatic, respirations even & nonlabored on O2 @ 5Lpm 100% FiO2 via hiflow n/c. Right chest tube intact with continuous low suction. Call light within reach.
[2021-03-13 16:00] VITALS: BP 119/67
[2021-03-13] MEDS ORDERED: DEXTROSE 50% 50 ML SYR IVP PRN (16:10)
[2021-03-13] MEDS: BLOOD GLUCOSE MONITORING 1 DEV DEV FS SCH ×2 (16:43→21:00)
[2021-03-13 20:00] VITALS: BP 120/77
[2021-03-13] MEDS: AZITHROMYCIN 500 MG in DEXTROSE 5% 250 ML IV SCH (21:00)
[2021-03-14] VITALS: BP 125/75
--- NOTE | 2021-03-14 01:57 | NUR ---
PATIENT ALERT X4 KOREAN SPEAKING CHEST TUBE INTACT AT RIGHT SIDE NO LEAK HAS SMALL DRAINAGE IN PLURAL VAC FROM DAYS. LUNGS DIMINISH TO LISTEN SAT 96%. PATIENT ON 3 LITERS N/C. VOIDING WELL. HAS 20 GA IN LEFT WRIST INFUSING N.S 80 HOUR. BLOOD SUGAR 118 NO INSULIN NEEDED.PATIENT C/O OF PAIN ON RIGHT SIDE MEDICATED WITH MORPHINE 2 MG IVP. AND AMBIEN 5 MG PO. NO DISTRESS NOTED . JENNY ALMAZAN RN.
[2021-03-14 04:00] VITALS: BP 128/74
[2021-03-14] MEDS: PROMETH/CODEINE 6.25-10MG/5ML 5 ML UDC PO PRN (06:18)
[2021-03-14 06:55] LABS: BASOPHILS % (AUTO) 0.4 % (0.0-2.0); EOSINOPHILS # (AUTO) 0.9 K/uL (0-0.4); EOSINOPHILS % (AUTO) 13.3 % (0.0-4.0); HEMATOCRIT 41.2 % (36-52); HEMOGLOBIN 13.7 g/dL (12.0-18.0); LYMPHOCYTES # (AUTO) 1.6 K/uL (2.0-11.5); LYMPHOCYTES % (AUTO) 24.8 % (20.5-51.1); MEAN CORPUSCULAR HEMOGLOBIN 29 pg (27-31); MEAN CORPUSCULAR HGB CONC 33 g/dL (33-37); MEAN CORPUSCULAR VOLUME 87.7 fL (80-94); MONOCYTES # (AUTO) 0.5 K/uL (0.8-1.0); MONOCYTES % (AUTO) 8.1 % (1.7-9.3); NEUTROPHILS # (AUTO) 3.5 K/uL (1.8-7.7); NEUTROPHILS % (AUTO) 53.4 % (42.2-75.2); PLATELET COUNT (AUTO) 161 K/uL (140-450); RED CELL DISTRIBUTION WIDTH 15.2 % (11.6-13.7); WHITE BLOOD COUNT (AUTO) 6.5 K/uL (4.8-10.8)
[2021-03-14 07:08] LABS: ALBUMIN 2.9 g/dL (3.4-5.0); ANION GAP 1.1 (8-16); CARBON DIOXIDE 32.1 mmol/L (21-32); CREATININE 0.8 mg/dL (0.6-1.3); MAGNESIUM 2.3 mg/dL (1.8-2.4); POTASSIUM 3.2 mmol/L (3.5-5.1); TOTAL BILIRUBIN 0.3 mg/dL (0.0-1.0)
--- NOTE | 2021-03-14 07:08 | NUR ---
RECEIVED REPORT FROM PESTICIDE CONTROL INSPECTOR NURSE FOR CONTINUITY OF CARE. PT STABLE. NO S/S OF DISTRESS. BREATHING SYMMETRICAL. IV FLUIDS RUNNING PER MD ORDER. WALL SUCTION NOT WORKING.
[2021-03-14 08:00] VITALS: BP 116/69
[2021-03-14] MEDS: BLOOD GLUCOSE MONITORING 1 DEV DEV FS SCH ×4 (08:05→21:22)
--- NOTE | 2021-03-14 09:20 | NUR ---
PT RESTING IN BED. BREAKFAST AT BEDSIDE. PT STABLE. NO S/S OF DISTRESS. BREATHING SYMMETRICAL. IV FLUIDS RUNNING PER MD ORDER. RT ATTEMPTED TO FIX OR REMOVE WALL SUCTION, UNABLE. PT TO MOVE ROOMS. CALL LIGHT IN REACH. ALL SAFETY MEASURES IN PLACE
--- NOTE | 2021-03-14 11:30 | NUR ---
PT MOVED AND REASSIGNED TO ROOM 112A FOR CONTINUED CARE. PT CHEST TUBE ATTACHED TO WALL SUCTION ON LOW. O2 VIA NC AT 3L. IV FLUID RUNNING PER MD ORDER. NO S/S OF DISTRESS. CALL LIGHT IN REACH. ALL SAFETY MEASURES IN PLACE
--- NOTE | 2021-03-14 14:20 | NUR ---
PT RESTING IN BED. NO S/S OF DISTRESS. ALL SAFETY MEASURES IN PLACE. CALL LIGHT IN REACH. IV RUNNING PER MD ORDER. WALL SUCTION ON LOW. NC 3L. EMPTIED PT URINAL. PROVIDED PT BEDSIDE COMMODE FOR PT USE
--- NOTE | 2021-03-14 15:50 | NUR ---
03/14/21 RD INITIAL ASSESSMENT COMPLETED PLEASE REFER TO NUTRITION ASSESSMENT UNDER CARE ACTIVITY FOR ESTIMATED NUTRITIONAL NEEDS. 1. CONTINUE REGULAR DIET TOLERATED 2. RD TO FOLLOW-UP 3-5 DAYS, MODERATE RISK JOE HERNANDEZ RD
[2021-03-14 16:00] VITALS: BP 128/84
--- NOTE | 2021-03-14 17:37 | NUR ---
PT REPORTED PAIN 3/10 AROUND CHEST TUBE INSERTION. PT STABLE. NO S/S OF DISTRESS. CALL LIGHT IN REACH. ALL SAFETY MEASURES IN PLACE. PT MEDICATED PER MD ORDER. WILL REASSESS PAIN
[2021-03-14] MEDS: ACETAMINOPHEN 325 MG TAB PO PRN (17:41)
--- NOTE | 2021-03-14 18:41 | NUR ---
CHANGED CHEST TUBE DRESSING. OLD DRESSING WAS DETACHED FROM PT SKIN. PT TOLERATED WELL. NO S/S OF DISTRESS. CALL LIGHT IN REACH. ALL SAFETY MEASURES IN PLACE. SUCTION WORKING. IV RUNNING PER MD ORDER
[2021-03-14] MEDS: NACL 0.9% 1,000 ML IV SCH (18:43)
--- NOTE | 2021-03-14 19:32 | NUR ---
ENDORSED PT TO CLINICAL VETERINARIAN NURSE. PT STABLE. NO S/S OF DISTRESS. BREATHING SYMMETRICAL. CALL LIGHT IN REACH. ALL SAFETY MEASURES IN PLACE. IV RUNNING PER MD ORDER. Addendum: 03/14/21 at 1932 by Melvina Lopez RN RN CHEST TUBE STILL SUCTIONING
--- NOTE | 2021-03-14 19:35 | NUR ---
RECEIVED BEDSIDE REPORT FROM DAY SHIFT NURSE FOR CONTINUITY OF CARE. PT AWAKE, ALERT AND ORIENTED.PT IS UKRAINIAN SPEAKING.PT ON O2 3LNC.PT WITH NO SIGNS AND SYMPTOMS OF DISTRESS. IV INFUSING WELL. NO COMPLAIN OF PAIN AT THIS TIME. ALL SAFETY PRECAUTIONS IN PLACE. CALL LIGHT WITHIN REACH.WILL CONTINUE TO MONITOR.
[2021-03-14] MEDS: AZITHROMYCIN 500 MG in DEXTROSE 5% 250 ML IV SCH (21:06)
--- NOTE | 2021-03-14 21:25 | NUR ---
DUE MEDS GIVEN. BLOOD SUGAR WAS 196. PT REFUSED INSULIN COVERAGE. PT EDUCATED ABOUT THE IMPORTANCE OF THE MEDICATION, PT VERBALIZED UNDERSTANDING. PT HAS NO OTHER COMPLAINS AT THIS TIME. ALL SAFETY PRECAUTION IN PLACE.CALL LIGHT WITHIN REACH. WILL CONTINUE TO MONITOR.
--- NOTE | 2021-03-14 23:15 | NUR ---
PT SITTING ON BED,USING HIS CELLPHONE.PT ASKED FOR A SANDWICH.PROVIDED PT'S NEEDS.PT STABLE, NOT IN ANY DISTRESS.ALL SAFETY MEASURES IN PLACE. CALL LIGHT WITHIN REACH. WILL CONTINUE TO MONITOR.
--- NOTE | 2021-03-15 01:50 | NUR ---
PT ASLEEP. VISIBLE CHEST RISE AND FALL NOTED.ALL PRECAUTIONS IN PLACE.CALL LIGHT WITHIN REACH. WILL CONTINUE TO MONITOR.
[2021-03-15 04:00] VITALS: BP 112/79
[2021-03-15] MEDS: PROMETH/CODEINE 6.25-10MG/5ML 5 ML UDC PO PRN ×2 (04:16→16:29)
[2021-03-15] MEDS: NACL 0.9% 1,000 ML IV SCH ×3 (04:59→20:02)
[2021-03-15 06:34] LABS: BASOPHILS % (AUTO) 0.4 % (0.0-2.0); EOSINOPHILS # (AUTO) 0.7 K/uL (0-0.4); EOSINOPHILS % (AUTO) 11.7 % (0.0-4.0); HEMATOCRIT 40.3 % (36-52); HEMOGLOBIN 13.6 g/dL (12.0-18.0); LYMPHOCYTES # (AUTO) 1.5 K/uL (2.0-11.5); MEAN CORPUSCULAR HEMOGLOBIN 29 pg (27-31); MEAN CORPUSCULAR HGB CONC 34 g/dL (33-37); MEAN CORPUSCULAR VOLUME 87.2 fL (80-94); MONOCYTES # (AUTO) 0.4 K/uL (0.8-1.0); MONOCYTES % (AUTO) 6.8 % (1.7-9.3); NEUTROPHILS # (AUTO) 3.7 K/uL (1.8-7.7); NEUTROPHILS % (AUTO) 57.1 % (42.2-75.2); PLATELET COUNT (AUTO) 163 K/uL (140-450); RED BLOOD CELL COUNT(AUTO) 4.63 MIL/uL (4.20-6.10); RED CELL DISTRIBUTION WIDTH 14.9 % (11.6-13.7); WHITE BLOOD COUNT (AUTO) 6.4 K/uL (4.8-10.8)
--- NOTE | 2021-03-15 06:38 | NUR ---
PT STABLE. NO ACUTE EVENTS THROUGHOUT THE NIGHT. PT NOT IN DISTRESS AND HAS NO COMPLAINS AT THIS TIME. ALL NEEDS ATTENDED.CALL LIGHT WITHIN REACH.WILL ENDORSE TO AM SHIFT NURSE.FOR CONTINUITY OF CARE.
[2021-03-15] MEDS: BLOOD GLUCOSE MONITORING 1 DEV DEV FS SCH ×4 (06:52→20:23)
[2021-03-15 06:56] LABS: ANION GAP 9.8 (8-16); CARBON DIOXIDE 29.1 mmol/L (21-32); CREATININE 0.8 mg/dL (0.6-1.3); MAGNESIUM 2.1 mg/dL (1.8-2.4); POTASSIUM 3.9 mmol/L (3.5-5.1); TOTAL BILIRUBIN 0.4 mg/dL (0.0-1.0)
--- NOTE | 2021-03-15 07:40 | NUR ---
RECEIVED REPORT FROM RAW STOCK MACHINE LOADER NURSE FOR CONTINUITY OF CARE, POC DISCUSSED. PT IS RESTING IN BED ON 4L NC . BREATHING IS EVEN AND UNLABORED. ALL SAFETY MEASURES IN PLACE, CALL LIGHT WITHIN REACH.
--- NOTE | 2021-03-15 07:43 | NUR ---
PT ENDORSED TO AM SHIFT NURSE FOR CONTINUITY OF CARE. PT IS STABLE.
[2021-03-15 12:00] VITALS: BP 126/78
[2021-03-15] MEDS ORDERED: HUMSLIDE SUBQ (14:06)
[2021-03-15] MEDS ORDERED: ACET-1182 PO (14:06)
[2021-03-15] MEDS ORDERED: ONDA2SOL45 IVP (14:06)
[2021-03-15] MEDS ORDERED: ZOLP5TAB1 PO (14:06)
[2021-03-15] MEDS: ACETAMINOPHEN 325 MG TAB PO PRN ×2 (16:26→22:13)
--- NOTE | 2021-03-15 19:30 | NUR ---
ENDORSED PT TO NIGHT NURSE. PT STABLE. NO S/S OF DISTRESS. BREATHING IS UNLABORED AND EVEN. ALL SAFETY MEASURES IN PLACE.
--- NOTE | 2021-03-15 19:31 | NUR ---
RECEIVED BEDSIDE REPORT FROM DAY RN. PT IS AAOX4 EQUATORIAL GUINEAN SPEAKING ABLE TO MAKE NEEDS KNOWN. PT IS ON BEDREST URINAL AT BEDSIDE. C/C SOB DX RIGHT PNEUMOTHORAX. CHEST TUBE ON RIGHT ON INTERM SUCTION TIDALING NOTED. LUNG SOUND DIMINISHED ON R. DRESSING IS C/D/I. RESPIRATIONS ARE EQUAL AND UNLABORED ON 3L NC SAT WELL. HOME O2 AT BEDSIDE. POC DISCUSSED WITH PATIENT. PT TO BE TX HLOC NO BED AT THIS TIME. CALL LIGHT IS WITHIN REACH. WILL CONTINUE TO MONITOR.
[2021-03-15 20:00] VITALS: BP 125/81
[2021-03-15] MEDS: INSULIN LISPRO SLIDING SCALE 100 UNITS/ML VIAL SUBQ PRN (20:23)
--- NOTE | 2021-03-15 21:08 | NUR ---
ROUNDS MADE. PT OBSERVED RESTING IN BED WATCHING TV. NO S/SX OF DISTRESS. CALL LIGHT IS WITHIN REACH. WILL CONTINUE TO MONITOR.
--- NOTE | 2021-03-15 23:00 | NUR ---
PT PRESENTS WITH NO SIGNS OF RESPIRATORY DISTRESS, SITTING UP WATCHING TV, ON 3 L NC, SATING 95%. WILL CONTINUE TO MONITOR.
--- NOTE | 2021-03-15 23:20 | NUR ---
OLD IV LEAKING. IV CATH REMOVED CATH IS INTACT. NEW IV ON LAC 22G ON FIRST ATTEMPT PT TOLERATED WELL. ALL NEEDS MET. CALL LIGHT IS WITHIN REACH.
--- NOTE | 2021-03-16 01:12 | NUR ---
SPOKE WITH LIAM FROM [facility] PER LIAM THEIR DOCTOR STILL NEED TO TALK TO EITHER DR RODRIGUEZ OR PATRICK. PER LIAM NEED NEW COVID TEST. WILL ORDER RAPID TEST.
--- NOTE | 2021-03-16 02:07 | NUR ---
ROUNDS MADE. PT OBSERVED RESTING IN BED APPEARS TO BE ASLEEP. CHEST RISE AND FALL NOTED. ALL SAFETY MEASURES ARE IN PLACE. WILL CONTINUE TO MONITOR.
[2021-03-16] MEDS: MORPHINE SULFATE 4 MG/ML SYR IVP PRN (02:56)
[2021-03-16 04:00] VITALS: BP 101/69
--- NOTE | 2021-03-16 04:20 | NUR ---
VITAL SIGNS ARE WITHIN NORMAL LIMITS. ALL SAFETY MEASURES ARE IN PLACE. WILL CONTINUE TO MONITOR.
--- NOTE | 2021-03-16 06:33 | NUR ---
BLOOD SUGAR 111 NO COVERAGE NEEDED. ALL NEEDS MET. CALL LIGHT IS WITHIN REACH. WILL CONTINUE TO MONITOR.
[2021-03-16] MEDS: BLOOD GLUCOSE MONITORING 1 DEV DEV FS SCH ×3 (06:35→17:13)
--- NOTE | 2021-03-16 07:10 | NUR ---
RECEIVED BEDSIDE REPORT FROM PANEL MONITOR NURSE FOR CONTINUITY OF CARE. PT IS AWAKE AND ALERT. A&OX4, AMHARIC SPEAKING. ON 3L O2 NC WITH BREATHING UNLABORED. RIGHT CHEST TUBE IN PLACE TO INTERMITTENT SUCTION. CONTINENT OF BOWEL AND BLADDER WITH URINAL AND COMMODE AT BEDSIDE. SKIN IS WARM, DRY, AND INTACT. IV IS IN THE LEFT AC 22 GAUGE RUNNING NS AT 80 ML PER HOUR PER ORDER. PT IS STABLE. PLAN OF CARE DISCUSSED.
--- NOTE | 2021-03-16 07:33 | NUR ---
GAVE BEDSIDE REPORT TO DAY RN. PT ENDORSED IN STABLE CONDITION.
[2021-03-16 08:00] VITALS: BP 116/77
[2021-03-16] MEDS: NACL 0.9% 1,000 ML IV SCH ×2 (08:17→18:57)
--- NOTE | 2021-03-16 09:30 | NUR ---
ROUNDED ON PT. HE IS AWAKE, SITTING UP IN BED. PT ATE 100% OF BREAKFAST. DENIES PAIN AT THIS TIME. BREATHING IS UNLABORED ON 3L O2 NC. NO DISTRESS AT THIS TIME.
[2021-03-16] MEDS: INSULIN LISPRO SLIDING SCALE 100 UNITS/ML VIAL SUBQ PRN (11:49)
--- NOTE | 2021-03-16 11:50 | NUR ---
BS READING IS 188. HUMALOG INSULIN GIVEN PER SLIDING SCALE, 2 UNITS. MEDICATION EDUCATION WAS PROVIDED AND PT VERBALIZED UNDERSTANDING. Addendum: 03/16/21 at 1156 by Christy Singh RN PT ENDED UP REFUSING INSULIN AFTER ALL. EDUCATION WAS PROVIDED AND PT STILL REFUSED. WILL CONTINUE TO MONITOR BS.
--- NOTE | 2021-03-16 13:50 | NUR ---
ROUNDED ON PT. HE IS AWAKE, TALKING ON THE PHONE. NO DISTRESS NOTED. ON 3L O2 NC WITH BREATHING UNLABORED. CHEST TUBE IN PLACE ON THE RIGHT SIDE. PT IS STABLE.
--- NOTE | 2021-03-16 15:38 | NUR ---
HEPARIN 10,000 UNITS WAS CANCELED. HEPARIN WAS NOT GIVEN TO PATIENT. THIS ORDER WAS FOR A DIFFERENT PATIENT FOR HD.
[2021-03-16 16:00] VITALS: BP 127/83
--- NOTE | 2021-03-16 16:00 | NUR ---
PT IS AWAKE. LAYING IN BED. SPEAKING APPROPRIATELY. DENIES PAIN. NO DISTRESS NOTED. CHEST TUBE IN PLACE ON THE RIGHT CONNECTED TO SUCTION. WILL CONTINUE TO MONITOR.
--- NOTE | 2021-03-16 16:30 | NUR ---
BS READING IS 115. NO INSULIN COVERAGE NEEDED PER SLIDING SCALE.
--- NOTE | 2021-03-16 18:30 | NUR ---
PT IS SITTING UP, EATING DINNER AT BEDSIDE. PT STATES HE IS OKAY. FLUIDS WERE CHANGED AND IV IS INTACT/PATENT. PT IS STABLE.
--- NOTE | 2021-03-16 19:10 | NUR ---
ENDORSED PT TO GHOST WRITER NURSE FOR CONTINUITY OF CARE. PT IS STABLE. PLAN OF CARE DISCUSSED.
--- NOTE | 2021-03-16 19:11 | NUR ---
RECEIVED ENDORSEMENT FROM MORNING SHIFT FOR CONTINUITY OF CARE. PATIENT IS AWAKE AND ALERT. A&OX4, LATVIAN SPEAKING. VERBALLY RESPONSIVE AND ABLE TO COMMUNICATE NEEDS. DENIES PAIN BUT C/O OF COUGHING. WILL COMMUNICATE MD REGARDING A PRN ORDER. O2 SAT OF 75% ON 3L NC. RESPIRATIONS EVEN AND UNLABORED. NO APPARENT S/SX OF ACUTE DISTRESS. RIGHT CHEST TUBE IN PLACE TO INTERMITTENT SUCTION. CONTINENT OF BOWEL AND BLADDER WITH URINAL AND COMMODE AT BEDSIDE. SKIN IS WARM, DRY, AND INTACT. IV SITE IN LAC 22G PATENT/INTACT WITH NS INFUSING AT 80 ML PER HOUR. WHITE COMMUNICATION BOARD AND POC UPDATED. ALL SAFETY MEASURES IN PLACE. CALL LIGHT WITHIN REACH. ENCOURAGED PATIENT TO USE CALL LIGHT FOR ANY NEEDS/ASSISTANCE. WILL CONTINUE TO MONITOR. Addendum: 03/16/21 at 2012 by Jasbir Elias LVN ERROR ON O2 SAT OF 75%: O2 SAT OF 96% ON 3L NC.
[2021-03-16 20:00] VITALS: BP 124/87
--- NOTE | 2021-03-16 20:03 | NUR ---
PT WAS SEEN AND ASSESSED. PT ON NASAL CANNULA 4L SPO2 98 TITRATED TO 3L SPO2 94%. PT IS IN NO RESPIRATORY DISTRESS AT THIS TIME. CHEST TUBE STILL IN PLACE. WILL CONTINUE TO MONITOR PT.
--- NOTE | 2021-03-16 20:15 | NUR ---
INFORMED PATIENT THERE'S [facility]ACANT BED TONIGHT FOR HIM TO BE TRANSFERRED TO [facility]. DISCHARGE INSTRUCTIONS GIVEN. VERBALIZED UNDERSTANDING. 02 SAT - 96% ON 3 LITERS N/C. NO COMPLAINT OF PAIN 0/10.
--- NOTE | 2021-03-16 20:35 | NUR ---
CALLED [facility] FOR REPORT. RECEIVING NURSE ANDREAS IS STILL BUSY, WILL CALL [facility] FOR REPORT.
--- NOTE | 2021-03-16 21:00 | NUR ---
REPORT GIVEN TO NURSE ANDREAS, PATIENT IS GOING TO ROOM 366. [facility] PERSONNEL CAME.
[2021-03-16 21:20] VITALS: BP 124/87
--- NOTE | 2021-03-16 21:30 | NUR ---
REPORT GIVEN TO [facility] P[facility]NEL. ALL BELONGINGS OF PATIENT PUT IN A PLASTIC BAG AND GIVEN TO THEM. PATIENT SIGNED DISCHARGE PAPERS.
--- NOTE | 2021-03-16 21:50 | NUR ---
TAKEN TO HOSPITAL LOBBY PARKING IN STABLE CONDITION, ACCOMPANIED BY [facility] PERSONNEL FOR TRANSFER TO [facility]. GEOLOGICAL E LOGGER CECILLE DUARTE.
== END 2021-03-16 21:50 | disposition short-term general hospital (02) | DRG 143 ==
LOC: MED 20:40 → MTU 03-10 02:43
PROVIDERS: ADMIT Internal Medicine; ATTEND Internal Medicine
PROC: 0W9930Z Drainage of Right Pleural Cavity with Drainage Device, Percutaneous Approach (ICD-10-PCS; principal; 2021-03-10)
PROC: 5A0935A Assistance with Respiratory Ventilation, Less than 24 Consecutive Hours, High Flow/Velocity Cannula (ICD-10-PCS; 2021-03-11)
PROC: 5A0935A Assistance with Respiratory Ventilation, Less than 24 Consecutive Hours, High Flow/Velocity Cannula (ICD-10-PCS; 2021-03-12)
PROC: 5A0935A Assistance with Respiratory Ventilation, Less than 24 Consecutive Hours, High Flow/Velocity Cannula (ICD-10-PCS; 2021-03-13)
DX: J93.83 Other pneumothorax (principal); J96.01 Acute respiratory failure with hypoxia; J18.9 Pneumonia, unspecified organism; R65.10 Systemic inflammatory response syndrome (SIRS) of non-infectious origin without acute organ dysfunction; E11.9 Type 2 diabetes mellitus without complications; U09.9 Post COVID-19 condition, unspecified; Z20.822 Contact with and (suspected) exposure to COVID-19; J93.12 Secondary spontaneous pneumothorax; E66.9 Obesity, unspecified; R00.0 Tachycardia, unspecified; E78.5 Hyperlipidemia, unspecified; Z79.899 Other long term (current) drug therapy; Z82.49 Family history of ischemic heart disease and other diseases of the circulatory system; Z83.3 Family history of diabetes mellitus; Z68.27 Body mass index [BMI] 27.0-27.9, adult; Z87.01 Personal history of pneumonia (recurrent)
CPT/HCPCS: 32551; 36415; 71045; 71250; 80053; 81001; 82948; 83605; 83735; 84484; 85025; 87040; 87081; 93005; 96365; 96375; 99291; J0456; J0696; J2001; J2270; J2405; J3490; J7060; Q0092